=== PATIENT | female | born 1945 | race Caucasian/White ===

== ENCOUNTER 2024-05-30 04:43 | Observation (INO) | payer MEDICARE, SELFPAY ==
[2024-05-30] VITALS (19 sets, daily range): BP systolic 99–145; BP diastolic 77–113; PULSE 81–119; RESP 14–20; TEMP 36.6–36.9; O2SAT 90–97; BMI 35.4; BMI 37.5
--- NOTE | 2024-05-30 04:51 | ECG_ITS ---
[facility] Test Date: 2024-05-30 Pat Name: Loreto Almeida Department: Room: 107 Gender: Female Formula Maker: : 1945 Requested By: Gaurav Eric Order Number: [id number] Vannessa MD: Milton Vásquez M.D. Measurements Intervals [place] Rate: 101 P: 0 IN: 0 QRS: 132 QRSD: 91 T: 2 QT: 322 QTc: 419 Interpretive Statements ATRIAL FIBRILLATION WITH RAPID VENTRICULAR RESPONSE POSSIBLE RIGHT VENTRICULAR HYPERTROPHY [SOME/ALL OF: PROMINENT R IN V1, LATE TRANSITION, RAD, NINA, SSS] No previous ECG available for comparison Electronically Signed On 06-01-2024 7:54:22 CDT by Milton Vásquez M.D. [email or web address] TLL.[employer] Artsmerit health woman's hospitalOptiMine Softwaresouthern ohio medical center.[employer]/store/NU/[id number] f
--- NOTE | 2024-05-30 04:52 | XRR_ITS ---
PROCEDURE INFORMATION: Exam: XR Chest Exam date and time: 05/30/2024 4:57 AM Age: 78 years old Clinical indication: Chest pressure; Patient HX: C/O chest pain. History of afib. TECHNIQUE: Imaging protocol: Radiologic exam of the chest. Views: 1 view. COMPARISON: No relevant prior studies available. FINDINGS: Lungs: Unremarkable. No consolidation. Pleural spaces: Unremarkable. No pleural effusion. No pneumothorax. Heart/Mediastinum: Unremarkable. No cardiomegaly. Bones/joints: Unremarkable. XR/XR chest 1V portable [id number] IMPRESSION: No acute findings.
--- NOTE | 2024-05-30 04:53 | ECG_ITS ---
[facility] Test Date: 2024-05-30 Pat Name: Loreto Almeida Department: Room: Gender: Female Prototype Special Build: : 1945 Requested By: Gaurav Eric Order Number: [id number] Vannessa MD: Roosevelt Mckinney M.D. Measurements Intervals [place] Rate: 95 P: 0 MT: 0 QRS: -49 QRSD: 94 T: 13 QT: 349 QTc: 441 Interpretive Statements ATRIAL FIBRILLATION LEFT ANTERIOR FASCICULAR BLOCK [QRS AXIS <= -45, QR IN I, RS IN II] No previous ECG available for comparison Electronically Signed On 05-30-2024 7:59:08 CDT by Roosevelt Mckinney M.D. [email or web address] [email or web address]/store/[id number]
[2024-05-30 05:00] LABS: Basophils # 0.1 10^3/uL (0.0-0.1); Eosinophils # 0.2 10^3/uL (0.0-0.8); Eosinophils % 3.1 %; Hematocrit 40.6 % (36-47); Lymphocytes # 1.2 10^3/uL (0.8-4.8); Lymphocytes % 16.5 %; Mean Corpuscular HGB Conc 31.5 g/dL (30-55); Mean Corpuscular Volume 85.7 fl (85-98); Monocytes # 0.8 10^3/uL (0.2-0.9); Monocytes % 10.2 %; Neutrophils # 5.05 10^3/uL (1.8-7.7); Neutrophils % 68.9 %; Nucleated Red Blood Cells % 0 %; Platelet Count 253 10^3/cmm (157-399); Red Blood Count 4.74 10^6/uL (3.85-5.65); Red Cell Distribution Width 14.6 % (12.1-15.1); White Blood Count 7.33 10^3/uL (3.29-11.43)
[2024-05-30] MEDS: aspirin 81 mg Chew Tablet 324 MG PO (05:05)
[2024-05-30] MEDS: dilTIAZem 5 mg/mL SDV 5 mL 10 MG IVP (05:09)
--- NOTE | 2024-05-30 05:15 | ED_ITS ---
Documented by User: Gaurav Eric MD 05/30/24 06:02 HPI - Chest Pain 2 General: Chief Complaint: Chest Pain Stated Complaint: cp,afib,nausea Time Seen by Provider: 05/30/24 04:52 History of Present Illness: Patient woke with chest pain this morning. The pain woke her up from sleep so she would not to her neighbor's car and started honking the car horn for help. Patient does have a history of atrial fibrillation. She states that she is not compliant with her medications for this because it gives her upset stomach. She is in A-fib currently. PFSH ED 2 PFSH: Medical History (Updated 05/30/24 @ 11:22 by Mike Nix MD) History of back pain HTN, goal below 130/80 Chest pain Atrial fibrillation with rapid ventricular response Surgical History (Updated 05/30/24 @ 11:12 by Mike Nix MD) History of Social History (Updated 05/30/24 @ 11:13 by Mike Nix MD) Smoking and tobacco/nicotine status: never used tobacco/nicotine Alcohol intake: never Substance/Drug Use: never Physical Exam 2 Const: COMMON NORMALS: no acute distress HENMT: COMMON NORMALS: normocephalic and atraumatic HEAD & SCALP: n ormocephalic and atraumatic Resp: COMMON NORMALS: normal respiratory effort Cardio: RATE: tachycardic RHYTHM: abnormal rhythm irregularly irregular GI: COMMON NORMALS: Normal to inspection, nondistended, normoactive bowel sounds present Extremity: COMMON NORMALS: normal to inspection Course 2 Vital Signs: Vital signs: Vital Signs Temperature 97.8 F 05/30/24 12:00 Pulse Rate 94 05/30/24 12:00 Respiratory Rate 19 H 05/30/24 12:00 Blood Pressure 117/101 05/30/24 12:00 Pulse Oximetry 94 05/30/24 12:00 Oxygen Delivery Me thod Room Air 05/30/24 12:00 MDM - Chest Pain Medical Decision Making EKG with nonspecific ST and T wave changes. Rhythm is in atrial fibrillation with heart rate of 101 on EKG. In the room on the monitor the patient is going between 100-130. Patient started on Cardizem drip for A-fib with RVR. Will check cardiac enzymes. Patient given aspirin. Lab Data 05/30/24 04:53 05/30/24 04:53 Radiology Impressions Chest X-Ray 05/30/24 04:52 IMPRESSION: No acute findings. Head CT 05/30/24 10:12 IMPRESSION: No large territorial infarct or intracranial bleed. Laboratory Results WBC 7.33 10^3/uL (3.29-11.43) 05/30/24 04:53 RBC 4.74 10^6/uL (3.85-5.65) 05/30/24 04:53 Hgb 12.80 g/dL (11.27-16.99) 05/30/24 04:53 Hct 40.6 % (36-47) 05/30/24 04:53 MCV 85.7 fl (85-98) 05/30/24 04:53 MCH 27.0 pg (27-33) 05/30/24 04:53 MCHC 31.5 g/dL (30-55) 05/30/24 04:53 RDW 14.6 % (12.1-15.1) 05/30/24 04:53 Plt Count 253 10^3/cmm (157-399) 05/30/24 04:53 MPV 10.0 fL (7.4-10.4) 05/30/24 04:53 Neut % (Auto) 68.9 % 05/30/24 04:53 Lymph % (Auto) 16.5 % 05/30/24 04:53 Forest % (Auto) 10.2 % 05/30/24 04:53 Eos % (Auto) 3.1 % 05/30/24 04:53 Baso % (Auto) 1.0 % 05/30/24 04:53 Neut # (Auto) 5.05 10^3/uL (1.8-7.7) 05/30/24 04:53 Lymph # (Auto) 1.2 10^3/uL (0.8-4.8) 05/30/24 04:53 Forest # (Auto) 0.8 10^3/uL (0.2-0.9) 05/30/24 04:53 Eos # (Auto) 0.2 10^3/uL (0.0-0.8) 05/30/24 04:53 Baso # (Auto) 0.1 10^3/uL (0.0-0.1) 05/30/24 04:53 Nucleated RBC % (auto) 0 % 05/30/24 04:53 Nucleated RBCs # 0.0 /100WBC 05/30/24 04:53 Sodium 137 mmol/L (136-145) 05/30/24 04:53 Potassium 4.4 mmol/L (3.5-5.1) 05/30/24 04:53 Chloride 103 mmol/L (98-107) 05/30/24 04:53 Carbon Dioxide 19 mmol/L (22-29) L 05/30/24 04:53 Anion Gap 19.4 (5-19) H 05/30/24 04:53 BUN 52 mg/dL (8-23) H 05/30/24 04:53 Creatinine 1.2 mg/dL (0.5-0.9) H 05/30/24 04:53 GFR Calculation Not Reportable 05/30/24 04:53 Glucose 119 mg/dL (65-115) H 05/30/24 04:53 Estimat Average Glucose 126 05/30/24 04:53 Hemoglobin A1c 6.0 % (4.0-6.0) 05/30/24 04:53 Calculated Osmolality 299 mOsm/kg (285-295) H 05/30/24 04:53 Calcium 9.4 mg/dL (8.5-10.5) 05/30/24 04:53 Magnesium 2.1 mg/dL (1.7-2.3) 05/30/24 07:11 Total Bilirubin 0.4 mg/dL (0.15-1.2) 05/30/24 04:53 AST 23 U/L (0-32) 05/30/24 04:53 ALT 21 U/L (0-33) 05/30/24 04:53 Alkaline Phosphatase 106 U/L (35-105) H 05/30/24 04:53 Troponin T Baseline 35 ng/L (0-10) H 05/30/24 04:53 Troponin T 120 Minute 33.58 ng/L (0-10) H 05/30/24 07:11 Delta Troponin T -1.42 ABS# (0-10) L 05/30/24 07:11 C-Reactive Protein 6.1 mg/L (0.0-4.9) H 05/30/24 07:11 NT-Pro-B Natriuret Pep 1823 pg/mL (0-450) H 05/30/24 07:11 Total Protein 7.0 g/dL (6.6-8.7) 05/30/24 04:53 Albumin 0.2 g/dL (3.5-5.2) L 05/30/24 04:53 Globulin 6.8 g/dL (1.3-4.6) H 05/30/24 04:53 Triglycerides 126 mg/dL (0-150) 05/30/24 04:53 Cholesterol 194 mg/dL (0-200) 05/30/24 04:53 LDL Cholesterol, Calc 107 mg/dL (50-129) 05/30/24 04:53 HDL Cholesterol 62 mg/dL (60-100) 05/30/24 04:53 LDL/HDL Ratio 1.73 RATIO (0.00-3.22) 05/30/24 04:53 Cholesterol/HDL Ratio 3.13 mg/dL (0.0-4.40) 05/30/24 04:53 Procalcitonin 0.16 ng/mL (0-0.5) 05/30/24 07:11 TSH 1.16 uIU/mL (0.27-4.20) 05/30/24 04:53 Urine Color Yellow (Yellow) 05/30/24 05:53 Urine Appearance Cloudy (CLEAR) A 05/30/24 05:53 Urine pH 5.5 (5-7) 05/30/24 05:53 Ur Specific Gal[place] 1.023 (1.005-1.030) 05/30/24 05:53 Urine Protein 1+ (Negative) A 05/30/24 05:53 Urine Glucose (UA) Negative (Normal) 05/30/24 05:53 Urine Ketones Negative (Negative) 05/30/24 05:53 Urine Blood Trace (Negative) A 05/30/24 05:53 Urine Nitrate Positive (Negative) A 05/30/24 05:53 Urine Bilirubin Negative (Negative) 05/30/24 05:53 Urine Urobilinogen 1.0 mg/dL (Negative) 05/30/24 05:53 Ur Leukocyte Esterase 2+ (Negative) A 05/30/24 05:53 Urine RBC 0-2 /hpf (0-2) 05/30/24 05:53 Urine WBC >100 /hpf (0-5) H 05/30/24 05:53 Ur Squamous Epith Cells 0-5 /hpf (0-5) 05/30/24 05:53 Urine Bacteria Exceeds /hpf (NONE) 05/30/24 05:53 Hyaline Casts 6.61 /lpf 05/30/24 05:53 Ethyl Alcohol < 10 mg/dL (0-10) 05/30/24 04:53 All radiology interpretation(s) finalized by discharge Discharge Plan Discharge Patient Disposition: Admitted As Inpatient Admit Provider: Mike Nix Clinical Impression: Atrial fibrillation with rapid ventricular response, Chest pain Condition: Stable Sign Out Sign Out Data: Patient Sign Out occurred on 05/30/24 at 06:10. Patient's care was discussed, and care was transferred from Gaurav Eric MD to Romulo Roberto DO. Coding Level of Care Code ED Horse Racing Manager for Chg Fwd Documented by User: Romulo Roberto DO 05/30/24 13:14 HPI - Chest Pain 2 General: Chief Complaint: Chest Pain Stated Complaint: cp,afib,nausea Time Seen by Provider: 05/30/24 04:52 [facility] ED 2 PFSH: Medical History (Updated 05/30/24 @ 11:22 by Mike Nix MD) History of back pain HTN, goal below 130/80 Chest pain Atrial fibrillation with rapid ventricular response Surgical History (Updated 05/30/24 @ 11:12 by Mike Nix MD) History of Social History (Updated 05/30/24 @ 11:13 by Mike Nix MD) Smoking and tobacco/nicotine status: never used tobacco/nicotine Alcohol intake: never Substance/Drug Use: never Course 2 Vital Signs: Vital signs: Vital Signs Temperature 97.8 F 05/30/24 12:00 Pulse Rate 94 05/30/24 12:00 Respiratory Rate 19 H 05/30/24 12:00 Blood Pressure 117/101 05/30/24 12:00 Pulse Oximetry 94 05/30/24 12:00 Oxygen Delivery Me thod Room Air 05/30/24 12:00 MDM - Chest Pain Medical Decision Making EKG with nonspecific ST and T wave changes. Rhythm is in atrial fibrillation with heart rate of 101 on EKG. In the room on the monitor the patient is going between 100-130. Patient started on Cardizem drip for A-fib with RVR. Will check cardiac enzymes. Patient given aspirin. Care assumed at change of shift still continuing to require diltiazem intermittently of chest pain cardiac enzymes trending negative at this point. EKG shows A-fib with rapid response but no acute ST changes. Will admit for A- fib with RVR further evaluation of chest pain. Chart reviewed no previous echocardiograms stress test angiograms noted. Lab Data 05/30/24 04:53 05/30/24 04:53 Radiology Impressions Chest X-Ray 05/30/24 04:52 IMPRESSION: No acute findings. Head CT 05/30/24 10:12 IMPRESSION: No large territorial infarct or intracranial bleed. Laboratory Results WBC 7.33 10^3/uL (3.29-11.43) 05/30/24 04:53 RBC 4.74 10^6/uL (3.85-5.65) 05/30/24 04:53 Hgb 12.80 g/dL (11.27-16.99) 05/30/24 04:53 Hct 40.6 % (36-47) 05/30/24 04:53 MCV 85.7 fl (85-98) 05/30/24 04:53 MCH 27.0 pg (27-33) 05/30/24 04:53 MCHC 31.5 g/dL (30-55) 05/30/24 04:53 RDW 14.6 % (12.1-15.1) 05/30/24 04:53 Plt Count 253 10^3/cmm (157-399) 05/30/24 04:53 MPV 10.0 fL (7.4-10.4) 05/30/24 04:53 Neut % (Auto) 68.9 % 05/30/24 04:53 Lymph % (Auto) 16.5 % 05/30/24 04:53 Forest % (Auto) 10.2 % 05/30/24 04:53 Eos % (Auto) 3.1 % 05/30/24 04:53 Baso % (Auto) 1.0 % 05/30/24 04:53 Neut # (Auto) 5.05 10^3/uL (1.8-7.7) 05/30/24 04:53 Lymph # (Auto) 1.2 10^3/uL (0.8-4.8) 05/30/24 04:53 [place] # (Auto) 0.8 10^3/uL (0.2-0.9) 05/30/24 04:53 Eos # (Auto) 0.2 10^3/uL (0.0-0.8) 05/30/24 04:53 Baso # (Auto) 0.1 10^3/uL (0.0-0.1) 05/30/24 04:53 Nucleated RBC % (auto) 0 % 05/30/24 04:53 Nucleated RBCs # 0.0 /100WBC 05/30/24 04:53 Sodium 137 mmol/L (136-145) 05/30/24 04:53 Potassium 4.4 mmol/L (3.5-5.1) 05/30/24 04:53 Chloride 103 mmol/L (98-107) 05/30/24 04:53 Carbon Dioxide 19 mmol/L (22-29) L 05/30/24 04:53 Anion Gap 19.4 (5-19) H 05/30/24 04:53 BUN 52 mg/dL (8-23) H 05/30/24 04:53 Creatinine 1.2 mg/dL (0.5-0.9) H 05/30/24 04:53 GFR Calculation Not Reportable 05/30/24 04:53 Glucose 119 mg/dL (65-115) H 05/30/24 04:53 Estimat Average Glucose 126 05/30/24 04:53 Hemoglobin A1c 6.0 % (4.0-6.0) 05/30/24 04:53 Calculated Osmolality 299 mOsm/kg (285-295) H 05/30/24 04:53 Calcium 9.4 mg/dL (8.5-10.5) 05/30/24 04:53 Magnesium 2.1 mg/dL (1.7-2.3) 05/30/24 07:11 Total Bilirubin 0.4 mg/dL (0.15-1.2) 05/30/24 04:53 AST 23 U/L (0-32) 05/30/24 04:53 ALT 21 U/L (0-33) 05/30/24 04:53 Alkaline Phosphatase 106 U/L (35-105) H 05/30/24 04:53 Troponin T Baseline 35 ng/L (0-10) H 05/30/24 04:53 Troponin T 120 Minute 33.58 ng/L (0-10) H 05/30/24 07:11 Delta Troponin T -1.42 ABS# (0-10) L 05/30/24 07:11 C-Reactive Protein 6.1 mg/L (0.0-4.9) H 05/30/24 07:11 NT-Pro-B Natriuret Pep 1823 pg/mL (0-450) H 05/30/24 07:11 Total Protein 7.0 g/dL (6.6-8.7) 05/30/24 04:53 Albumin 0.2 g/dL (3.5-5.2) L 05/30/24 04:53 Globulin 6.8 g/dL (1.3-4.6) H 05/30/24 04:53 Triglycerides 126 mg/dL (0-150) 05/30/24 04:53 Cholesterol 194 mg/dL (0-200) 05/30/24 04:53 LDL Cholesterol, Calc 107 mg/dL (50-129) 05/30/24 04:53 HDL Cholesterol 62 mg/dL (60-100) 05/30/24 04:53 LDL/HDL Ratio 1.73 RATIO (0.00-3.22) 05/30/24 04:53 Cholesterol/HDL Ratio 3.13 mg/dL (0.0-4.40) 05/30/24 04:53 Procalcitonin 0.16 ng/mL (0-0.5) 05/30/24 07:11 TSH 1.16 uIU/mL (0.27-4.20) 05/30/24 04:53 Urine Color Yellow (Yellow) 05/30/24 05:53 Urine Appearance Cloudy (CLEAR) A 05/30/24 05:53 Urine pH 5.5 (5-7) 05/30/24 05:53 Ur Specific [place] 1.023 (1.005-1.030) 05/30/24 05:53 Urine Protein 1+ (Negative) A 05/30/24 05:53 Urine Glucose (UA) Negative (Normal) 05/30/24 05:53 Urine Ketones Negative (Negative) 05/30/24 05:53 Urine Blood Trace (Negative) A 05/30/24 05:53 Urine Nitrate Positive (Negative) A 05/30/24 05:53 Urine Bilirubin Negative (Negative) 05/30/24 05:53 Urine Urobilinogen 1.0 mg/dL (Negative) 05/30/24 05:53 Ur Leukocyte Esterase 2+ (Negative) A 05/30/24 05:53 Urine RBC 0-2 /hpf (0-2) 05/30/24 05:53 Urine WBC >100 /hpf (0-5) H 05/30/24 05:53 Ur Squamous Epith Cells 0-5 /hpf (0-5) 05/30/24 05:53 Urine Bacteria Exceeds /hpf (NONE) 05/30/24 05:53 Hyaline Casts 6.61 /lpf 05/30/24 05:53 Ethyl Alcohol < 10 mg/dL (0-10) 05/30/24 04:53 Discharge Plan Discharge Patient Disposition: Admitted As Inpatient Admit Provider: Mike Nix Clinical Impression: Atrial fibrillation with rapid ventricular response, Chest pain Condition: Stable Sign Out Sign Out Data: Patient Sign Out occurred on 05/30/24 at 06:10. Patient's care was discussed, and care was transferred from Gaurav Eric MD to Romulo Roberto DO. Coding Level of Care Code ED Horse Racing Manager for Peg Marin
[2024-05-30 05:22] LABS: Troponin(5th) Baseline 35 ng/L (0-10)
[2024-05-30 05:23] LABS: Alanine Aminotransferase 21 U/L (0-33); Albumin Level 0.2 g/dL (3.5-5.2); Aspartate Amino Transferase 23 U/L (0-32); Blood Urea Nitrogen 52 mg/dL (8-23); Calcium 9.4 mg/dL (8.5-10.5); Carbon Dioxide 19 mmol/L (22-29); Creatinine Clr Calc Pharmacy 41.0889; Globulin 6.8 g/dL (1.3-4.6); Glucose 119 mg/dL (65-115); Total Bilirubin 0.4 mg/dL (0.15-1.2)
[2024-05-30 05:49] LABS: Alkaline Phosphatase 106 U/L (35-105); Anion Gap 19.4 (5-19); Chloride 103 mmol/L (98-107); Osmolality Calculated 299 mOsm/kg (285-295); Potassium 4.4 mmol/L (3.5-5.1); Sodium 137 mmol/L (136-145)
[2024-05-30] MEDS: dilTIAZem 100 MG in sodium chloride 0.9% (add-van) 100 ML IV ×2 (05:50→11:39)
[2024-05-30] MEDS: HYDROcodone-acetaminophen 5-325 mg Tablet 1 TAB PO (05:59)
[2024-05-30 06:21] LABS: Bilirubin Urine Negative (Negative); Blood Urine Trace (Negative); Charge for UA Resulting for Rev; Glucose Urine UA Negative (Normal); Ketones Urine Negative (Negative); Leukocyte Esterase Urine 2+ (Negative); Nitrate Urine Positive (Negative); Protein Urine 1+ (Negative); Specific Gravity, Urine 1.023 (1.005-1.030); Urine Appearance Cloudy (CLEAR); Urine Color Yellow (Yellow); pH Urine 5.5 (5-7)
[2024-05-30 06:26] LABS: Bacteria Urine EXCEEDS /hpf; Hyaline Casts Urine 6.61 /lpf; RBC Urine 0-2 /hpf (0-2); Squamous Epithelial Cell Urine 0-5 /hpf (0-5); WBC Urine >100 /hpf (0-5)
[2024-05-30 06:34] LABS: Add Urine Culture? Yes
--- NOTE | 2024-05-30 07:00 | PC.NURSE ---
this nurse assumed pt care at 0655.
[2024-05-30 07:39] LABS: Troponin 5 2HR 33.58 ng/L (0-10)
[2024-05-30 07:43] LABS: Troponin 5 2HR Delta -1.42 ABS# (0-10)
[2024-05-30] MEDS: cefTRIAXone 1,000 mg SDV 1000 MG IVP (08:48)
--- NOTE | 2024-05-30 09:34 | USR_ITS ---
PROCEDURE INFORMATION: Exam: US Retroperitoneal; Complete; Kidneys and Bladder Exam date and time: 05/30/2024 4:19 PM Age: 78 years old Clinical indication: Condition or disease; Kidney or ureter condition; Other: UTI TECHNIQUE: Imaging protocol: Real-time ultrasound of the retroperitoneum with image documentation. Complete exam focused on the kidneys and bladder. COMPARISON: No relevant prior studies available. FINDINGS: Right kidney: Normal. No stones. No hydronephrosis. Right kidney measures 9 x 4.4 x 4.3 cm with cortical thickness of 1.3 cm. Left kidney: Limited assessment due to overlying shadows. Possible tiny left renal stone in the interpolar region. No hydronephrosis. Left kidney measures 9 x 4.8 x 4.7 cm with cortical thickness of 1.2 cm. Urinary bladder: Unremarkable. US/US renal BI* [id number] IMPRESSION: No hydronephrosis on either side.
--- NOTE | 2024-05-30 09:37 | USCV_ITS ---
Loreto Almeida Age: 78 Gender: F : 1945 Exam Date: 05/30/2024 15:54 Ordering Phys: Mike Nix MD Technologist: Brody Jolly [place] [facility] [place] Indication: sob BP: 117 / 101 HR: 60 Rhythm: Sinus Technical Quality: Suboptimal MEASUREMENTS (Male / Female) Normal Values 2D ECHO LV Diastolic Diameter PLAX 4.5 cm 4.2 - 5.9 / 3.9 - 5.3 cm IVS Diastolic Thickness 1.3 cm 0.6 - 1.0 / 0.6 - 0.9 cm IVS Systolic Thickness 2.4 cm LVPW Diastolic Thickness 2.2 cm 0.6 - 1.0 / 0.6 - 0.9 cm LVPW Systolic Thickness 2.9 cm LVOT Diameter 2.0 cm LV Ejection Fraction 2D Teich 78.0 % LV Ejection Fraction MOD 4C 71.9 % LV Ejection Fraction MOD 2C 72.2 % LV Ejection Fraction 2C AL 75.0 % LA Diameter 4.5 cm Aorta at Sinotubular Diameter 2.0 cm IVC Diameter 2.5 cm M-MODE LA Ao Ratio MM 1.8 AV Cusp Separation MM 1.5 cm DOPPLER AV Peak Velocity 180.0 cm/s LVOT Peak Velocity 83.0 cm/s AV Area Cont Eq vti 1.3 cm squared AV Area Cont Eq pk 1.4 cm squared MV Peak Velocity 174.0 cm/s MV Area PHT 3.8 cm squared Mitral E to A Ratio 5.3 TR Peak Velocity 265.0 cm/s TR Peak Gradient 28.1 mmHg TR Mean Velocity 176.0 cm/s TR Mean Gradient 15.3 mmHg TR Velocity Time Integral 80.5 cm PV Peak Velocity 67.3 cm/s RV Ejection Time 0.3 s FINDINGS Left Ventricle Frequent ectopy. Normal left ventricular size and function. No regional wall motion disturbances. Ejection fraction about 60%. Rhythm precludes evaluation of diastolic function. Right Ventricle Normal right ventricular size and systolic function. Right Atrium The right atrium is normal in size. Left Atrium Moderately increased left atrial size. Mitral Valve Mitral valve poorly seen. No obvious regurgitation or stenosis. Aortic Valve Aortic valve is thickened and may be mildly calcified. No aortic insufficiency.mild aortic valve stenosis, mean gradient 8.8 mmHg, EMANUEL 1.3 cm squared. Tricuspid Valve Structurally normal tricuspid valve. Pulmonic Valve Pulmonic valve not well visualized. Mild pulmonary valve regurgitation. Pericardium There is a very small hemodynamically insignificant pericardial effusion Aorta Normal ascending aorta dimension. IVC The inferior vena cava appears normal. CONCLUSIONS Frequent ectopy. Normal left ventricular size and function. No regional wall motion disturbances. Ejection fraction about 60%. Rhythm precludes evaluation of diastolic function. Moderately increased left atrial size. Aortic valve is thickened and may be mildly calcified. No aortic insufficiency.mild aortic valve stenosis, mean gradient 8.8 mmHg, EMANUEL 1.3 cm squared. There is a very small hemodynamically insignificant pericardial effusion. There are no prior echocardiogram studies to compare. Dr. Roosevelt Mckinney MD (Electronically Signed) Final Date: 31 May 2024 08:31 S
[2024-05-30 10:06] LABS: NT Pro B Type Natriuretic Pept 1823 pg/mL (0-450); Procalcitonin 0.16 ng/mL (0-0.5)
--- NOTE | 2024-05-30 10:12 | CTR_ITS ---
PROCEDURE INFORMATION: Exam: CT Head Without Contrast Exam date and time: 05/30/2024 10:31 AM Age: 78 years old Clinical indication: Altered mental status/memory loss; Additional info: AMS TECHNIQUE: Imaging protocol: Computed tomography of the head without contrast. Radiation optimization: All CT scans at this facility use at least one of these dose optimization techniques: automated exposure control; mA and/or kV adjustment per patient size (includes targeted exams where dose is matched to clinical indication); or iterative reconstruction. COMPARISON: No relevant prior studies available. RADIATION DOSE METRICS: Total DLP (mGy-cm): 1101.9 FINDINGS: Brain: Bilateral periventricular white matter hypodensities consistent with chronic ischemic small vessel disease. Diffuse cerebral atrophy, consistent with patient's age. No intracranial bleed, mass effect or recent infarct. Cerebral ventricles: Ventricles are in proportion to the degree of atrophy. Paranasal sinuses: Visualized sinuses are unremarkable. No fluid levels. Mastoid air cells: Visualized mastoid air cells are well aerated. Bones: Unremarkable. No acute fracture. Soft tissues: Unremarkable. CT/CT head wo con* [id number] IMPRESSION: No large territorial infarct or intracranial bleed.
[2024-05-30 10:17] LABS: C Reactive Protein 6.1 mg/L (0.0-4.9); Magnesium 2.1 mg/dL (1.7-2.3)
[2024-05-30 10:33] LABS: INR 1.07 (0.8-1.2)
--- NOTE | 2024-05-30 11:11 | PM.HP ---
Providers/Chief Complaint Admitting Physician: Mike Nix MD Primary Care Provider: Jalil Gibbons DO Chief Complaint: cp,afib,nausea History of Present Illness Loreto Almeida is a 78 year old female with a past medical history of CAD status post stenting, history of atrial fibrillation, hypertension, history of [place] spotted fever, who presents to [facility] due to chest pain and palpitations. Patient was in the last night, [place], she started experiencing chest palpitations and chest pain, she wandered outside her trailer, trying to call family members, but was not able to reach some, she tried to get into her car, and call out for help, she was worried about something happening in her trailer and no one can get to her, so she was trying to call for help in her car, but no one was answering the phones, so she started flashing her lights, yelling for help, finally the police came, and able to calm her down, she was continued to complain of chest discomfort, with the police investigator confronted her that this was not her car it was a truck, that she was and is actually a neighbor's truck, eventually ambulance arrived, and she was brought to [facility] for evaluation, currently she is alert oriented x 4, following all commands, denies any focal weakness no slurring of words no, paresthesias, no nausea, no vomiting, no abdominal pain, she does complain of flank pain, she has a history of atrial for patient, but has not been using Eliquis Review of Systems Const: Denies: fever(s) Card: Reports: chest pain Resp: Denies: dyspnea : Denies: flank pain PFSH Acute PFSH: Medical History (Updated 05/30/24 @ 11:22 by Mike Nix MD) History of back pain HTN, goal below 130/80 Chest pain Atrial fibrillation with rapid ventricular response Surgical History (Updated 05/30/24 @ 11:12 by Mike Nix MD) History of Social History (Updated 05/30/24 @ 11:13 by Mike Nix MD) Smoking and tobacco/nicotine status: never used tobacco/nicotine Alcohol intake: never Substance/Drug Use: never Vitals/I&O/Wt Last Vital Signs Temp 98 F 05/30/24 10:48 Pulse 105 H 05/30/24 10:48 Resp 16 05/30/24 10:48 BP 145/113 05/30/24 10:48 Pulse Ox 95 05/30/24 10:48 O2 Del Method Room Air 05/30/24 10:16 Weight last 48 hrs Weight 87.997 kg Physical Exam Const: COMMON NORMALS: no acute distress and patient oriented x3 HENMT: COMMON NORMALS: normocephalic HEAD & SCALP: normocephalic Eye: COMMON NORMALS: Equal, round and reactive pupils present Neck/C-Spine: COMMON NORMALS: no JVD Lymph: LYMPHATIC: no lymphadenopathy noted Resp: COMMON NORMALS: normal respiratory effort, No retractions, No use of accessory muscles and clear to auscultation bilaterally AUSCULTATION: clear to auscultation bilaterally Cardio: COMMON NORMALS: no JVD, S1 normal heart sound present and S2 normal heart sound present RATE: tachycardic RHYTHM: abnormal rhythm irregularly irregular HEART SOUNDS: S1 normal heart sound present and S2 normal heart sound present GI: COMMON NORMALS: Normal to inspection, nondistended, normoactive bowel sounds present, Soft to palpation and non-tender Extremity: COMMON NORMALS: no calf tenderness and no pedal edema Neuro: COMMON NORMALS: patient oriented x3 and CN's II-XII intact bilaterally Psych: COMMON NORMALS: mental status grossly normal Data 05/30/24 04:53 05/30/24 04:53 Micro: Microbiology 05/30/24 07:56 Blood Culture - Preliminary Blood SPECIMEN COLLECTED 05/30/24 07:56 Blood Culture - Preliminary Blood SPECIMEN COLLECTED A&P Assessment and plan (1) Atrial fibrillation with rapid ventricular response: (2) Chest pain: (3) UTI (urinary tract infection): (4) AMS (altered mental status): (5) EMILIANO (acute kidney injury): Plan A-fib with RVR Is currently on Cardizem drip Add Cardizem p.o. 30 mg every 6 hours Eliquis 5 twice daily Chest pain ? Serial EKGs consult troponins, telemetry monitoring -Cardiac echo UTI, pyelonephritis ? Rocephin -Follow urine culture -Follow blood cultures EMILIANO Creatinine renal ultrasound Altered mental status, likely related to UTI ? Neurochecks Aspiration precautions CT head Chronic back pain Eliquis Full code Attestations Medical Necessity Statement*: Patient requires hospitalization, outpatient observation, for A-fib with RVR Diagnoses Atrial fibrillation with rapid ventricular response I48.91 Chest pain R07.9 UTI (urinary tract infection) N39.0 AMS (altered mental status) R41.82 EMILIANO (acute kidney injury) N17.9
[2024-05-30] MEDS: dilTIAZem 30 mg Tablet PO ×3 (11:39→22:16)
[2024-05-30] MEDS: pantoprazole 40 mg SDV IVP (11:39)
[2024-05-30 12:08] LABS: Amphetamines Screen Urine Negative (Negative); Barbiturates Screen Urine Negative (Negative); Benzodiazepines Screen Urine Negative (Negative); Cocaine Screen Urine Negative (Negative); Opiate Screen Urine Positive (Negative); PCP Screen Urine Negative (Negative); THC Screen Urine Negative (Negative)
[2024-05-30 12:44] LABS: Estmated Average Glucose 126
[2024-05-30 12:46] LABS: Chol HDL Ratio 3.13 mg/dL (0.0-4.40); Cholesterol 194 mg/dL (0-200); HDL Cholesterol 62 mg/dL (60-100); LDL Cholesterol Calculated 107 mg/dL (50-129); LDL HDL Ratio 1.73 RATIO (0.00-3.22); Thyroid Stimulating Hormone 1.16 uIU/mL (0.27-4.20); Triglycerides 126 mg/dL (0-150)
[2024-05-30 12:47] LABS: Alcohol Level < 10 mg/dL (0-10)
[2024-05-30] MEDS: morphine 4 mg/mL SDV 1 mL 2 MG IVP (13:03)
[2024-05-30 13:09] LABS: Troponin 5 6HR 31.84 ng/L (0-10)
[2024-05-30 13:15] LABS: Troponin 5 6HR Delta -3.16 ng/L (0-12)
[2024-05-30] MEDS: apixaban 5 mg Tablet PO (18:15)
[2024-05-31] VITALS (11 sets, daily range): BP systolic 92–136; BP diastolic 56–101; PULSE 70–104; RESP 15–24; TEMP 36.3–37; O2SAT 93–96
[2024-05-31 03:19] LABS: Basophils % 0.5 %; Eosinophils # 0.3 10^3/uL (0.0-0.8); Eosinophils % 4.6 %; Hematocrit 38.8 % (36-47); Lymphocytes # 1.3 10^3/uL (0.8-4.8); Lymphocytes % 21.9 %; Mean Corpuscular HGB Conc 30.9 g/dL (30-55); Mean Corpuscular Hemoglobin 26.8 pg (27-33); Mean Corpuscular Volume 86.8 fl (85-98); Mean Platelet Volume 10.9 fL (7.4-10.4); Monocytes # 0.6 10^3/uL (0.2-0.9); Monocytes % 10.7 %; Neutrophils # 3.66 10^3/uL (1.8-7.7); Nucleated Red Blood Cells % 0 %; Platelet Count 244 10^3/cmm (157-399); Red Blood Count 4.47 10^6/uL (3.85-5.65); Red Cell Distribution Width 14.7 % (12.1-15.1)
[2024-05-31 03:35] LABS: Alanine Aminotransferase 16 U/L (0-33); Albumin Level 3.6 g/dL (3.5-5.2); Alkaline Phosphatase 80 U/L (35-105); Anion Gap 13.5 (5-19); Aspartate Amino Transferase 19 U/L (0-32); Blood Urea Nitrogen 30 mg/dL (8-23); Calcium 8.8 mg/dL (8.5-10.5); Carbon Dioxide 21 mmol/L (22-29); Chloride 108 mmol/L (98-107); Globulin 2.6 g/dL (1.3-4.6); Glucose 103 mg/dL (65-115); Osmolality Calculated 292 mOsm/kg (285-295); Phosphorus 2.4 mg/dL (2.5-4.5); Potassium 4.5 mmol/L (3.5-5.1); Sodium 138 mmol/L (136-145); Total Bilirubin 0.4 mg/dL (0.15-1.2); Total Protein 6.2 g/dL (6.6-8.7)
--- NOTE | 2024-05-31 03:35 | PC.NURSE ---
Spoke with regarding patients complaints of chronic back pain, 06/05 requesting her home pain medication oxycodone-acetaminophen . The patient only has prn morphine for pain and states she can not take it because it made her feel funny and gave her a sever headache. Dr. Millan said ok to order her home dose 1 tab q6H prn.
[2024-05-31 03:48] LABS: Bacillus cereus group Not Detected (NOT DETECT); Bacillus subtillis group Not Detected (NOT DETECT); Corynebacterium Not Detected (NOT DETECT); Cutibacterium acnes (P.acnes) Not Detected (NOT DETECT); Enterococcus Not Detected (NOT DETECT); Enterococcus faecalis Not Detected (NOT DETECT); Enterococcus faecium Not Detected (NOT DETECT); Lactobacillus species Not Detected (NOT DETECT); Listeria Not Detected (NOT DETECT); Listeria monocytogenes Not Detected (NOT DETECT); Micrococcus Not Detected (NOT DETECT); Pan Candida Not Detected (NOT DETECT); Pan Gram-Negative Not Detected (NOT DETECT); Staphylococcus epidermidis Not Detected (NOT DETECT); Staphylococcus lugdunensis Not Detected (NOT DETECT); Staphylococcus species Detected (NOT DETECT); Streptococcus agalactiae Not Detected (NOT DETECT); Streptococcus anginosus group Not Detected (NOT DETECT); Streptococcus pneumoniae Not Detected (NOT DETECT); Streptococcus pyogenes Not Detected (NOT DETECT); Streptococcus species Not Detected (NOT DETECT); mecA Not Detected (NOT DETECT); mecC Not Detected (NOT DETECT)
[2024-05-31] MEDS: oxyCODONE-APAP 10-325 mg Tablet 1 TAB PO ×3 (04:19→19:25)
[2024-05-31] MEDS: dilTIAZem 30 mg Tablet PO (04:19)
--- NOTE | 2024-05-31 04:21 | PC.NURSE ---
Made aware of patient with positive preliminary blood cultures showing gram positive cocci in clusters and lab reports that bacterial ID positive for staphylococcus. said he would put in orders for vancomycin.
[2024-05-31] MEDS: vancomycin 1,500 MG/300 ML PIGGYBACK 200 MG IV ×2 (05:31→17:34)
[2024-05-31] MEDS: cefTRIAXone 1,000 mg SDV 1000 MG IVP (05:31)
[2024-05-31] MEDS: apixaban 5 mg Tablet PO ×2 (05:38→17:34)
--- NOTE | 2024-05-31 09:14 | PC.NURSE ---
Provider ordered to increase patients cardizem PO from 30mg to 60mg Q6 hrs to start now. Order entered.
[2024-05-31] MEDS: dilTIAZem 60 mg Tablet PO ×3 (09:24→21:17)
[2024-05-31] MEDS: pantoprazole 40 mg SDV IVP (11:46)
--- NOTE | 2024-05-31 15:30 | P.PN_ITS ---
Subjective 2 Subjective: patient was seen this morning, she denies fever, no chills, no nausea, no vommiting Vitals/I&O/Wt Last Vital Signs Temp 98.2 F 05/31/24 12:00 Pulse 70 05/31/24 12:00 Resp 20 H 05/31/24 12:00 BP 136/101 05/31/24 12:00 Pulse Ox 94 05/31/24 12:00 O2 Del Method Room Air 05/31/24 04:00 05/31/24 05/31/24 05/31/24 06:59 14:59 22:59 Intake Total 150 / 889.875 760 / 760 Output Total 100 / 100 Balance 150 / 89.875 660 / 660 Weight last 48 hrs Weight 86.183 kg Weight 87.09 kg Weight 87.997 kg Physical Exam 2 Const: COMMON NORMALS: no acute distress and patient oriented x3 Resp: COMMON NORMALS: normal respiratory effort, No retractions, No use of accessory muscles and clear to auscultation bilaterally AUSCULTATION: clear to auscultation bilaterally Cardio: COMMON NORMALS: S1 normal heart sound present and S2 normal heart sound present RATE: tachycardic RHYTHM: abnormal rhythm HEART SOUNDS: S 1 normal heart sound present and S2 normal heart sound present GI: COMMON NORMALS: Normal to inspection, nondistended, normoactive bowel sounds present and non-tender Extremity: COMMON NORMALS: no pedal edema Neuro: COMMON NORMALS: patient oriented x3 Psych: COMMON NORMALS: mental status grossly normal Data 05/31/24 02:15 05/31/24 02:15 Micro: Microbiology 05/30/24 07:56 Blood Culture - Preliminary Blood Staphylococcus sp coag neg 05/30/24 05:53 Urine Culture - Preliminary Urine,Clean Catch Gram Negative Rods 05/30/24 07:56 Blood Culture - Preliminary Blood NEGATIVE TO DATE 05/31/24 07:01 Blood Culture - Preliminary Blood SPECIMEN COLLECTED 05/31/24 06:55 Blood Culture - Preliminary Blood SPECIMEN COLLECTED A&P Assessment and plan (1) Atrial fibrillation with rapid ventricular response: (2) Chest pain: (3) UTI (urinary tract infection): (4) AMS (altered mental status): (5) EMILIANO (acute kidney injury): (6) Coag negative Staphylococcus bacteremia: Plan A-fib with RVR transition off drip Add Cardizem p.o. 60 mg every 6 hours Eliquis 5 twice daily Chest pain ? Serial EKGs consult troponins, telemetry monitoring -Cardiac echo UTI, pyelonephritis ? Rocephin -Follow urine culture -Follow blood cultures EMILIANO Creatinine renal ultrasound Altered mental status, likely related to UTI ? Neurochecks Aspiration precautions CT head Chronic back pain staph bacteremia, likely contamination -repeat blood cultures pending Eliquis Full code Attestations 2 Medical Necessity Statement*: patient requires hospitalization for uti, pyelonephritis, staph bacteremia. emiliano Diagnoses Atrial fibrillation with rapid ventricular response I48.91 Chest pain R07.9 UTI (urinary tract infection) N39.0 AMS (altered mental status) R41.82 EMILIANO (acute kidney injury) N17.9 Coag negative Staphylococcus bacteremia R78.81; B95.7
--- NOTE | 2024-05-31 19:14 | PC.NURSE ---
Patient ambulated the hallway after lunch for a total of about 50 feet. Her vitals remained stable. Her heart rate went up to 124 while walking after sitting back down her heart rate recovered to 88-103 within 3-5 minutes. She has also been getting up to the bedside commode on and off all day.
[2024-06-01] VITALS (12 sets, daily range): BP systolic 115–160; BP diastolic 63–100; PULSE 56–101; RESP 18–92; TEMP 36.5–36.8; O2SAT 91–96
[2024-06-01] MEDS: oxyCODONE-APAP 10-325 mg Tablet 1 TAB PO ×4 (00:49→21:04)
[2024-06-01] MEDS: dilTIAZem 60 mg Tablet PO ×4 (04:00→21:04)
[2024-06-01] MEDS: vancomycin 1,500 MG/300 ML PIGGYBACK 200 MG IV ×2 (04:00→17:26)
[2024-06-01 05:00] LABS: Basophils # 0.1 10^3/uL (0.0-0.1); Basophils % 0.8 %; Eosinophils # 0.3 10^3/uL (0.0-0.8); Eosinophils % 5.1 %; Hematocrit 41.5 % (36-47); Lymphocytes # 1.3 10^3/uL (0.8-4.8); Lymphocytes % 21.9 %; Mean Corpuscular HGB Conc 30.4 g/dL (30-55); Mean Corpuscular Hemoglobin 26.8 pg (27-33); Mean Corpuscular Volume 88.1 fl (85-98); Mean Platelet Volume 10.5 fL (7.4-10.4); Monocytes # 0.7 10^3/uL (0.2-0.9); Monocytes % 12.3 %; Neutrophils # 3.61 10^3/uL (1.8-7.7); Neutrophils % 59.7 %; Nucleated Red Blood Cells % 0 %; Platelet Count 273 10^3/cmm (157-399); Red Blood Count 4.71 10^6/uL (3.85-5.65); Red Cell Distribution Width 14.8 % (12.1-15.1); White Blood Count 6.04 10^3/uL (3.29-11.43)
[2024-06-01] MEDS: cefTRIAXone 1,000 mg SDV 1000 MG IVP (05:14)
[2024-06-01] MEDS: apixaban 5 mg Tablet PO ×2 (05:14→17:26)
[2024-06-01 05:24] LABS: Alanine Aminotransferase 14 U/L (0-33); Albumin Level 3.9 g/dL (3.5-5.2); Alkaline Phosphatase 98 U/L (35-105); Anion Gap 15.4 (5-19); Aspartate Amino Transferase 16 U/L (0-32); Blood Urea Nitrogen 25 mg/dL (8-23); Calcium 8.9 mg/dL (8.5-10.5); Carbon Dioxide 21 mmol/L (22-29); Chloride 105 mmol/L (98-107); Creatinine Clr Calc Pharmacy 58.3414; Globulin 2.8 g/dL (1.3-4.6); Glucose 91 mg/dL (65-115); Magnesium 1.9 mg/dL (1.7-2.3); Osmolality Calculated 288 mOsm/kg (285-295); Phosphorus 2.1 mg/dL (2.5-4.5); Potassium 4.4 mmol/L (3.5-5.1); Sodium 137 mmol/L (136-145); Total Bilirubin 0.5 mg/dL (0.15-1.2); Total Protein 6.7 g/dL (6.6-8.7)
[2024-06-01] MEDS: FUROsemide 10 mg/mL SDV 4mL 40 MG IVP (10:21)
[2024-06-01] MEDS: pantoprazole 40 mg SDV IVP (12:32)
--- NOTE | 2024-06-01 13:28 | PHA.VACGOAL ---
Vancomycin Goal - Goal Vancomycin Goal:: 10-15 mg/L Vancomycin Indication:: Other (UTI, PYELONEPHRITIS) - Therapy Current therapy:: Other Antibiotic (CEFTRIAXONE) Day of therpy:: DAY 2 Actual body weight (kg): 200 lb [place] body weight: 45.5 KG Dosing weight (kg): 63.58 - Data Labs: WBC 6.04 10^3/uL (3.29-11.43) 06/01/24 03:59 RBC 4.71 10^6/uL (3.85-5.65) 06/01/24 03:59 Hgb 12.60 g/dL (11.27-16.99) 06/01/24 03:59 Hct 41.5 % (36-47) 06/01/24 03:59 MCV 88.1 fl (85-98) 06/01/24 03:59 MCH 26.8 pg (27-33) L 06/01/24 03:59 MCHC 30.4 g/dL (30-55) 06/01/24 03:59 RDW 14.8 % (12.1-15.1) 06/01/24 03:59 Sodium 137 mmol/L (136-145) 06/01/24 03:59 Potassium 4.4 mmol/L (3.5-5.1) 06/01/24 03:59 Chloride 105 mmol/L (98-107) 06/01/24 03:59 Carbon Dioxide 21 mmol/L (22-29) L 06/01/24 03:59 Anion Gap 15.4 (5-19) 06/01/24 03:59 BUN 25 mg/dL (8-23) H 06/01/24 03:59 Creatinine 0.7 mg/dL (0.5-0.9) 06/01/24 03:59 GFR Calculation Not Reportable 06/01/24 03:59 Last dialysis session:: N/A Treatment plan:: continue Regimen:: 1500 MG Q12H Follow up:: TROUGH SCHEDULED 06/01 @ 1615 PRIOR TO 4TH DOSE
[2024-06-01 17:00] LABS: Vancomycin Trough 19.1 ug/mL (10-15)
--- NOTE | 2024-06-01 17:16 | P.PN_ITS ---
Subjective 2 Subjective: Patient was seen this morning, she does report shortness of breath on exertion, no nausea, no vomiting, no abdominal pain, does report edema Vitals/I&O/Wt Last Vital Signs Temp 98.2 F 06/01/24 12:00 Pulse 101 H 06/01/24 12:00 Resp 26 H 06/01/24 15:12 BP 158/98 06/01/24 12:00 Pulse Ox 95 06/01/24 15:12 O2 Del Method Room Air 06/01/24 12:00 06/01/24 06/01/24 06/01/24 06:59 14:59 22:59 Intake Total 300 / 1360 1080 / 1080 Output Total 1000 / 1000 800 / 1800 Balance 300 / 1260 80 / 80 -800 / -720 Weight last 48 hrs Weight 90.718 kg Weight 86.183 kg Physical Exam 2 Const: COMMON NORMALS: no acute distress and patient oriented x3 Resp: COMMON NORMALS: normal respiratory effort, No retractions, No use of accessory muscles and clear to auscultation bilaterally AUSCULTATION: clear to auscultation bilaterally Cardio: COMMON NORMALS: regular rate, S1 normal heart sound present and S2 normal heart sound present RATE: regular rate RHYTHM: abnormal rhythm H EART SOUNDS: S1 normal heart sound present and S2 normal heart sound present GI: COMMON NORMALS: Normal to inspection, nondistended, normoactive bowel sounds present and non-tender Extremity: OTHER: 1+ edema Neuro: COMMON NORMALS: patient oriented x3 Psych: COMMON NORMALS: mental status grossly normal Data 06/01/24 03:59 06/01/24 03:59 Micro: Microbiology 05/30/24 05:53 Urine Culture - Final Urine,Clean Catch Escherichia coli 05/31/24 07:01 Blood Culture - Preliminary Blood NEGATIVE TO DATE 05/31/24 06:55 Blood Culture - Preliminary Blood NEGATIVE TO DATE A&P Assessment and plan (1) Atrial fibrillation with rapid ventricular response: (2) Chest pain: (3) UTI (urinary tract infection): (4) AMS (altered mental status): (5) EMILIANO (acute kidney injury): (6) Coag negative Staphylococcus bacteremia: Plan A-fib with RVR transition off drip Add Cardizem p.o. 60 mg every 6 hours Eliquis 5 twice daily Chest pain ? Serial EKGs consult troponins, telemetry monitoring -Cardiac echo CONCLUSIONS Frequent ectopy. Normal left ventricular size and function. No regional wall motion disturbances. Ejection fraction about 60%. Rhythm precludes evaluation of diastolic function. Moderately increased left atrial size. Aortic valve is thickened and may be mildly calcified. No aortic insufficiency.mild aortic valve stenosis, mean gradient 8.8 mmHg, EMANUEL 1.3 cm squared. There is a very small hemodynamically insignificant pericardial effusion. There are no prior echocardiogram studies to compare. UTI, pyelonephritis ? Rocephin -Follow urine culture -Follow blood cultures EMILIANO Creatinine renal ultrasound no acute findings Altered mental status, likely related to UTI ? Neurochecks Aspiration precautions CT head Chronic back pain staph bacteremia, likely contamination -repeat blood cultures pending -Continue vancomycin Fluid overload, 1+ pitting edema, IV dose of Lasix 40 mg Eliquis Full code Attestations 2 Medical Necessity Statement*: Patient requires hospitalization for fluid overload requiring IV diuresis, A- fib, UTI, pyelonephritis, Staph species bacteremia Diagnoses Atrial fibrillation with rapid ventricular response I48.91 Chest pain R07.9 UTI (urinary tract infection) N39.0 AMS (altered mental status) R41.82 EMILIANO (acute kidney injury) N17.9 Coag negative Staphylococcus bacteremia R78.81; B95.7
[2024-06-01] MEDS: metoprolol tartrate 25 mg Tablet 12.5 MG PO (17:25)
--- NOTE | 2024-06-01 18:45 | PC.NURSE ---
agriculture research director nurse will walk with patient and note her heart rate and breathing. Monitor for dizziness.
[2024-06-02] VITALS (9 sets, daily range): BP systolic 110–160; BP diastolic 56–103; PULSE 59–113; RESP 18–92; TEMP 36.6–36.7; O2SAT 91–96; BMI 39.0
[2024-06-02] MEDS: oxyCODONE-APAP 10-325 mg Tablet 1 TAB PO ×2 (02:56→09:10)
[2024-06-02 04:27] LABS: Basophils # 0.1 10^3/uL (0.0-0.1); Basophils % 1.1 %; Eosinophils # 0.4 10^3/uL (0.0-0.8); Eosinophils % 6.2 %; Hematocrit 36.5 % (36-47); Lymphocytes # 1.3 10^3/uL (0.8-4.8); Lymphocytes % 23.6 %; Mean Corpuscular HGB Conc 31.5 g/dL (30-55); Mean Corpuscular Hemoglobin 27.5 pg (27-33); Mean Corpuscular Volume 87.3 fl (85-98); Mean Platelet Volume 10.5 fL (7.4-10.4); Monocytes # 0.8 10^3/uL (0.2-0.9); Monocytes % 13.9 %; Neutrophils # 3.11 10^3/uL (1.8-7.7); Neutrophils % 54.8 %; Nucleated Red Blood Cells % 0 %; Platelet Count 262 10^3/cmm (157-399); Red Blood Count 4.18 10^6/uL (3.85-5.65); Red Cell Distribution Width 14.9 % (12.1-15.1); White Blood Count 5.67 10^3/uL (3.29-11.43)
[2024-06-02 04:45] LABS: Anion Gap 15.2 (5-19); Blood Urea Nitrogen 29 mg/dL (8-23); Calcium 8.7 mg/dL (8.5-10.5); Carbon Dioxide 22 mmol/L (22-29); Chloride 108 mmol/L (98-107); Creatinine Clr Calc Pharmacy 60.0546; Glucose 105 mg/dL (65-115); Osmolality Calculated 298 mOsm/kg (285-295); Potassium 4.2 mmol/L (3.5-5.1); Sodium 141 mmol/L (136-145)
[2024-06-02] MEDS: cefTRIAXone 1,000 mg SDV 1000 MG IVP (05:36)
[2024-06-02] MEDS: apixaban 5 mg Tablet PO (05:36)
[2024-06-02] MEDS: vancomycin 1,500 MG/300 ML PIGGYBACK 200 MG IV (05:36)
[2024-06-02] MEDS: metoprolol tartrate 25 mg Tablet 12.5 MG PO (09:08)
[2024-06-02] MEDS: dilTIAZem 60 mg Tablet PO ×2 (09:08→14:16)
--- NOTE | 2024-06-02 11:18 | P.DS_ITS ---
Discharge Providers Date of Admission: 05/30/24 07:58 Date of Discharge: June 02, 2024 Attending Provider at Admission: Mike Nix MD Attending Provider at Discharge: Mike Nix MD Primary Care Provider: Jalil Gibbons DO Diagnoses at Discharge Discharge Diagnosis (1) Atrial fibrillation with rapid ventricular response: Status: Acute (2) Chest pain: Status: Acute (3) UTI (urinary tract infection): Status: Acute (4) AMS (altered mental status): Status: Acute (5) EMILIANO (acute kidney injury): Status: Acute (6) Coag negative Staphylococcus bacteremia: Status: Acute Reason for Visit Reason for Visit: cp,afib,nausea Hospital Course Hospital Course devante Almeida is a 78 year old female with a past medical history of CAD status post stenting, history of atrial fibrillation, hypertension, history of [place] spotted fever, who presents to [facility] due to chest pain and palpitations. Patient was in the last night, [place], she started experiencing chest palpitations and chest pain, she wandered outside her trailer, trying to call family members, but was not able to reach some, she tried to get into her car, and call out for help, she was worried about something happening in her trailer and no one can get to her, so she was trying to call for help in her car, but no one was answering the phones, so she started flashing her lights, yelling for help, finally the police came, and able to calm her down, she was continued to complain of chest discomfort, with the public safety police confronted her that this was not her car it was a truck, that she was and is actually a neighbor's truck, eventually ambulance arrived, and she was brought to [facility] for evaluation, currently she is alert oriented x 4, following all commands, denies any focal weakness no slurring of words no, paresthesias, no nausea, no vomiting, no abdominal pain, she does complain of flank pain, she has a history of atrial for patient, but has not been using Eliquis This is a 78-year-old female, who presents [facility] for A-fib with RVR, managed initially on a Cardizem drip, transition to p.o. Cardizem, discharged on Cardizem to 40 mg once daily. In addition she needed to metoprolol 12.5 mg twice daily, discharged on home Eliquis, follow-up with cardiology as outpatient. Patient's hospitalization was complicated with UTI, pyelonephritis, urine culture showing E. coli, discharged on cefdinir Patient's hospitalization was complicated with staphylococcal species coagulase- negative positive blood cultures, seen in 1 out of 3 blood cultures, repeat blood cultures so far negative, likely contamination, has no other complaints, she does have hardware in her left hip, denies any hip pain. Remains afebrile, will discharge her with close follow-up with primary care provider as outpatient. Physical Exam Const: COMMON NORMALS: no acute distress and patient oriented x3 Resp: COMMON NORMALS: normal respiratory effort, No retractions, No use of accessory muscles and clear to auscultation bilaterally AUSCULTATION: clear to auscultation bilaterally Cardio: COMMON NORMALS: regular rate, regular rhythm, S1 normal heart sound present and S2 normal heart sound present RATE: regular rate RHYTHM: regular rhythm HEART SOUNDS: S1 normal heart sound present and S2 normal heart sound present GI: COMMON NORMALS: Normal to inspection, nondistended, normoactive bowel sounds present and non-tender Extremity: COMMON NORMALS: no pedal edema Neuro: COMMON NORMALS: patient oriented x3 Psych: COMMON NORMALS: mental status grossly normal Discharge Data Studies Completed and Pending Completed Studies During Hospitalization Category Date Time Status CT head wo con* [id number] Stat Cat Scan 05/30/24 10:12 Completed CXRP [XR chest 1V portable [id number]] Stat Exams 05/30/24 04:52 Completed CV. echo complete* [id number] Stat Ultrasound 05/30/24 09:37 Completed US renal BI* [id number] Stat Ultrasound 05/30/24 09:34 Completed Pending at discharge Category Date Time Status Blood Culture Stat Lab 05/30/24 07:56 Results Blood Culture Stat Lab 05/31/24 07:01 Results Radiology Impressions Chest X-Ray 05/30/24 04:52 IMPRESSION: No acute findings. Renal Ultrasound 05/30/24 09:34 IMPRESSION: No hydronephrosis on either side. Head CT 05/30/24 10:12 IMPRESSION: No large territorial infarct or intracranial bleed. Laboratory Results WBC 5.67 10^3/uL (3.29-11.43) 06/02/24 03:49 RBC 4.18 10^6/uL (3.85-5.65) 06/02/24 03:49 Hgb 11.50 g/dL (11.27-16.99) 06/02/24 03:49 Hct 36.5 % (36-47) 06/02/24 03:49 MCV 87.3 fl (85-98) 06/02/24 03:49 MCH 27.5 pg (27-33) 06/02/24 03:49 MCHC 31.5 g/dL (30-55) 06/02/24 03:49 RDW 14.9 % (12.1-15.1) 06/02/24 03:49 Plt Count 262 10^3/cmm (157-399) 06/02/24 03:49 MPV 10.5 fL (7.4-10.4) H 06/02/24 03:49 Neut % (Auto) 54.8 % 06/02/24 03:49 Lymph % (Auto) 23.6 % 06/02/24 03:49 [place] % (Auto) 13.9 % 06/02/24 03:49 Eos % (Auto) 6.2 % 06/02/24 03:49 Baso % (Auto) 1.1 % 06/02/24 03:49 Neut # (Auto) 3.11 10^3/uL (1.8-7.7) 06/02/24 03:49 Lymph # (Auto) 1.3 10^3/uL (0.8-4.8) 06/02/24 03:49 [place] # (Auto) 0.8 10^3/uL (0.2-0.9) 06/02/24 03:49 Eos # (Auto) 0.4 10^3/uL (0.0-0.8) 06/02/24 03:49 Baso # (Auto) 0.1 10^3/uL (0.0-0.1) 06/02/24 03:49 Nucleated RBC % (auto) 0 % 06/02/24 03:49 Nucleated RBCs # 0.0 /100WBC 06/02/24 03:49 PT 14.20 SECONDS (12.1-14.9) 05/30/24 10:17 INR 1.07 (0.8-1.2) 05/30/24 10:17 Sodium 141 mmol/L (136-145) 06/02/24 03:49 Potassium 4.2 mmol/L (3.5-5.1) 06/02/24 03:49 Chloride 108 mmol/L (98-107) H 06/02/24 03:49 Carbon Dioxide 22 mmol/L (22-29) 06/02/24 03:49 Anion Gap 15.2 (5-19) 06/02/24 03:49 BUN 29 mg/dL (8-23) H 06/02/24 03:49 Creatinine 0.8 mg/dL (0.5-0.9) 06/02/24 03:49 GFR Calculation Not Reportable 06/02/24 03:49 Glucose 105 mg/dL (65-115) 06/02/24 03:49 Estimat Average Glucose 126 05/30/24 04:53 Hemoglobin A1c 6.0 % (4.0-6.0) 05/30/24 04:53 Calculated Osmolality 298 mOsm/kg (285-295) H 06/02/24 03:49 Calcium 8.7 mg/dL (8.5-10.5) 06/02/24 03:49 Phosphorus 2.1 mg/dL (2.5-4.5) L 06/01/24 03:59 Magnesium 1.9 mg/dL (1.7-2.3) 06/01/24 03:59 Total Bilirubin 0.5 mg/dL (0.15-1.2) 06/01/24 03:59 AST 16 U/L (0-32) 06/01/24 03:59 ALT 14 U/L (0-33) 06/01/24 03:59 Alkaline Phosphatase 98 U/L (35-105) 06/01/24 03:59 Troponin T Baseline 35 ng/L (0-10) H 05/30/24 04:53 Troponin T 120 Minute 33.58 ng/L (0-10) H 05/30/24 07:11 Delta Troponin T -1.42 ABS# (0-10) L 05/30/24 07:11 Troponin T Hi Sens 6Hr 31.84 ng/L (0-10) H 05/30/24 12:45 Troponin T Hi Sens 6Hr Delta -3.16 ng/L (0-12) L 05/30/24 12:45 C-Reactive Protein 6.1 mg/L (0.0-4.9) H 05/30/24 07:11 NT-Pro-B Natriuret Pep 1823 pg/mL (0-450) H 05/30/24 07:11 Total Protein 6.7 g/dL (6.6-8.7) 06/01/24 03:59 Albumin 3.9 g/dL (3.5-5.2) 06/01/24 03:59 Globulin 2.8 g/dL (1.3-4.6) 06/01/24 03:59 Triglycerides 126 mg/dL (0-150) 05/30/24 04:53 Cholesterol 194 mg/dL (0-200) 05/30/24 04:53 LDL Cholesterol, Calc 107 mg/dL (50-129) 05/30/24 04:53 HDL Cholesterol 62 mg/dL (60-100) 05/30/24 04:53 LDL/HDL Ratio 1.73 RATIO (0.00-3.22) 05/30/24 04:53 Cholesterol/HDL Ratio 3.13 mg/dL (0.0-4.40) 05/30/24 04:53 Procalcitonin 0.16 ng/mL (0-0.5) 05/30/24 07:11 TSH 1.16 uIU/mL (0.27-4.20) 05/30/24 04:53 Urine Color Yellow (Yellow) 05/30/24 05:53 Urine Appearance Cloudy (CLEAR) A 05/30/24 05:53 Urine pH 5.5 (5-7) 05/30/24 05:53 Ur Specific [place] 1.023 (1.005-1.030) 05/30/24 05:53 Urine Protein 1+ (Negative) A 05/30/24 05:53 Urine Glucose (UA) Negative (Normal) 05/30/24 05:53 Urine Ketones Negative (Negative) 05/30/24 05:53 Urine Blood Trace (Negative) A 05/30/24 05:53 Urine Nitrate Positive (Negative) A 05/30/24 05:53 Urine Bilirubin Negative (Negative) 05/30/24 05:53 Urine Urobilinogen 1.0 mg/dL (Negative) 05/30/24 05:53 Ur Leukocyte Esterase 2+ (Negative) A 05/30/24 05:53 Urine RBC 0-2 /hpf (0-2) 05/30/24 05:53 Urine WBC >100 /hpf (0-5) H 05/30/24 05:53 Ur Squamous Epith Cells 0-5 /hpf (0-5) 05/30/24 05:53 Urine Bacteria Exceeds /hpf (NONE) 05/30/24 05:53 Hyaline Casts 6.61 /lpf 05/30/24 05:53 Vancomycin Trough 19.1 ug/mL (10-15) H 06/01/24 16:30 Urine Opiates Screen Positive ng/mL (Negative) H 05/30/24 11:39 Ur Barbiturates Screen Negative ng/mL (Negative) 05/30/24 11:39 Ur Phencyclidine Scrn Negative ng/mL (Negative) 05/30/24 11:39 Ur Amphetamines Screen Negative ng/mL (Negative) 05/30/24 11:39 U Benzodiazepines Scrn Negative ng/mL (Negative) 05/30/24 11:39 Urine Cocaine Screen Negative ng/mL (Negative) 05/30/24 11:39 U Marijuana (THC) Screen Negative ng/mL (Negative) 05/30/24 11:39 Ethyl Alcohol < 10 mg/dL (0-10) 05/30/24 04:53 Vitals Last Vital Signs Temp 98.0 F 06/02/24 07:55 Pulse 102 H 06/02/24 07:55 Resp 25 H 06/02/24 09:10 BP 158/90 06/02/24 07:55 Pulse Ox 95 06/02/24 09:10 O2 Del Method Room Air 06/02/24 07:55 Discharge Plan Discharge Patient Disposition: Home Condition: Stable Prescriptions: New metoprolol tartrate 25 mg Tablet 12.5 mg PO Q12H 30 Days Qty: 30 0RF diltiazem HCl [Cardizem CD] 240 mg capsule,extended release 24hr 240 mg PO DAILY 30 Days Qty: 60 0RF cefdinir 300 mg capsule 300 mg PO BID 5 Days Qty: 10 0RF Continued tizanidine 4 mg tablet 4 mg PO Q6H PRN (Reason: Muscle Spasm) oxycodone-acetaminophen 10-325 mg tablet 1 - 2 tab PO Q6H PRN (Reason: Pain, Severe) Rx Instructions: MUST LAST 14 DAYS OR LONGER MAX DAILY AMOUNT: 8 TABLETS Eliquis 5 mg tablet 5 mg PO BID Discontinued diltiazem HCl [DILT-XR] 120 mg capsule,ext.rel 24h degradable 120 mg PO DAILY Discharge Orders: Discharge Order (Routine); Ordered 06/02/24 Ordered By: Mike Nix Referrals: Antoine Gibbons [Referring] - 06/09/24 11:20 am Milton Vásquez M.D [Physician] - 4-7 days Discharge Diet: Cardiac Discharge Activity: Resume usual activity Patient Instructions: Opioid Safety Discharge Attestations Time Spent in Discharge Care*: greater than 30 min Quality Metrics Clinical Quality Measures [ No reported AMI, CVA or VTE this stay] Coding Level of Care Code 65713 Total time (in minutes) for Discharge: 45 Diagnoses Atrial fibrillation with rapid ventricular response I48.91 Chest pain R07.9 UTI (urinary tract infection) N39.0 AMS (altered mental status) R41.82 EMILIANO (acute kidney injury) N17.9 Coag negative Staphylococcus bacteremia R78.81; B95.7
[2024-06-02] MEDS: pantoprazole 40 mg SDV IVP (11:19)
--- NOTE | 2024-06-02 12:19 | P.PHAVANC_ITS ---
Vancomycin Goal - Goal Vancomycin Goal:: 10-15 mg/L Vancomycin Indication:: Other (UTI, PYELONEPHRITIS) - Therapy Current therapy:: Other Antibiotic (CEFTRIAXONE) Day of therpy:: Day []of [] . Actual body weight (kg): 90.718 kg [place] body weight: 45.5 Dosing weight (kg): 90.718 - Data Labs: WBC 5.67 10^3/uL (3.29-11.43) 06/02/24 03:49 RBC 4.18 10^6/uL (3.85-5.65) 06/02/24 03:49 Hgb 11.50 g/dL (11.27-16.99) 06/02/24 03:49 Hct 36.5 % (36-47) 06/02/24 03:49 MCV 87.3 fl (85-98) 06/02/24 03:49 MCH 27.5 pg (27-33) 06/02/24 03:49 MCHC 31.5 g/dL (30-55) 06/02/24 03:49 RDW 14.9 % (12.1-15.1) 06/02/24 03:49 Sodium 141 mmol/L (136-145) 06/02/24 03:49 Potassium 4.2 mmol/L (3.5-5.1) 06/02/24 03:49 Chloride 108 mmol/L (98-107) H 06/02/24 03:49 Carbon Dioxide 22 mmol/L (22-29) 06/02/24 03:49 Anion Gap 15.2 (5-19) 06/02/24 03:49 BUN 29 mg/dL (8-23) H 06/02/24 03:49 Creatinine 0.8 mg/dL (0.5-0.9) 06/02/24 03:49 GFR Calculation Not Reportable 06/02/24 03:49 Laboratory Tests 06/01/24 16:30 Vancomycin Trough 19.1 H Last dialysis session:: N/A Drug administration history:: Medications Ceftriaxone Sodium (Ceftriaxone 1,000 Mg Sdv) 1,000 mg IVP Q24H HARJINDER; Protocol Last Admin: 06/02/24 05:36 Dose: 1,000 mg Vancomycin(Vancocin) 1,500 mg in 300 mls @ 200 mls/hr IV Q12H HARJINDER Last Admin: 06/02/24 07:34 Dose: Infused Treatment plan:: continue Regimen:: 1500 MG IV Q 12H Follow up:: SCr daily with AM lab Rationale:: Discharge orders have been entered for patient
--- NOTE | 2024-06-02 14:32 | PC.NURSE ---
discharge instructions given and explained.pt and daughter verb understanding of instructions.discharged via w/c to exit at this time.
[2024-06-03 19:44] LABS: Bacillus cereus group Not Detected (NOT DETECT); Bacillus subtillis group Not Detected (NOT DETECT); Corynebacterium Not Detected (NOT DETECT); Cutibacterium acnes (P.acnes) Detected (NOT DETECT); Enterococcus Not Detected (NOT DETECT); Enterococcus faecalis Not Detected (NOT DETECT); Enterococcus faecium Not Detected (NOT DETECT); Lactobacillus species Not Detected (NOT DETECT); Listeria Not Detected (NOT DETECT); Listeria monocytogenes Not Detected (NOT DETECT); Micrococcus Not Detected (NOT DETECT); Pan Candida Not Detected (NOT DETECT); Pan Gram-Negative Not Detected (NOT DETECT); Staphylococcus epidermidis Not Detected (NOT DETECT); Staphylococcus lugdunensis Not Detected (NOT DETECT); Staphylococcus species Not Detected (NOT DETECT); Streptococcus agalactiae Not Detected (NOT DETECT); Streptococcus anginosus group Not Detected (NOT DETECT); Streptococcus pneumoniae Not Detected (NOT DETECT); Streptococcus pyogenes Not Detected (NOT DETECT); Streptococcus species Not Detected (NOT DETECT)
--- NOTE | 2024-06-07 11:51 | PM.MISC ---
Miscellaneous Note Purpose of Documentation: Spoke to patient daughter, patient's blood cultures have finally been reported, cultures have been slow to report, 1 out of 4 blood cultures positive for Staphylococcus saprophyticus, this could be a UTI/bacteremia, I spoke to patient's daughter, I think this is a contamination, but to err on the side of caution, would recommend treatment, she is already on cefdinir as per the daughter, continue cefdinir. If she has any significant symptomatology fevers chills dysuria she should come back to the emergency room, but should complete cefdinir follow-up with primary care
== END 2024-06-02 14:33 | disposition home or self-care (01) ==
LOC: ER 08:03 → CSU 11:18
PROVIDERS: Emergency Medicine; Internal Medicine; Admitting Provider Family Medicine; Emergency Provider Family Medicine; PCP Family Medicine; Visit Provider Family Medicine
DX: I48.91 Unspecified atrial fibrillation (principal); N39.0 Urinary tract infection, site not specified; R78.81 Bacteremia; B95.7 Other staphylococcus as the cause of diseases classified elsewhere; I25.10 Atherosclerotic heart disease of native coronary artery without angina pectoris; Z95.5 Presence of coronary angioplasty implant and graft; I10 Essential (primary) hypertension; Z87.39 Personal history of other diseases of the musculoskeletal system and connective tissue; N12 Tubulo-interstitial nephritis, not specified as acute or chronic; N17.9 Acute kidney failure, unspecified; G89.29 Other chronic pain; M54.9 Dorsalgia, unspecified
CPT/HCPCS: 36415; 70450; 71045; 76770; 80048; 80053; 80061; 80202; 80306; 80307; 81003; 81015; 83036; 83735; 83880; 84100; 84145; 84443; 84484; 85025; 85610; 86140; 87040; 87077; 87086; 87150; 87186; 87205; 93005; 93306; 94664; 96365; 96366; 96367; 96375; 96376; 99291; A9270; G0378; J0696; J1940; J2270; J2470; J3370; J3490

== ENCOUNTER 2025-10-01 17:28 | Emergency (ER) | payer MEDICARE, SELFPAY ==
[2025-10-01 17:29] VITALS: BP 121/67; PULSE 92; RESP 20; TEMP 37.1; O2SAT 90; BMI 39.0
--- OUTSIDE RECORDS SUMMARY | 2025-10-01 17:32 | XMS_ITS | Encounter Summary ---
Author Organization [facility] Address [address] [place] [address] Care Team Providers Care Supervisor Instrument Maintenance Name Role Phone EmilybrittJalil DO Primary Care Provider [phone] Reason for Referral * Radiology Services (Routine) - Closed Specialty Diagnoses / Procedures Referred By Karin t Referred To Contact Diagnoses Left ureteral stone Procedures XR FLUORO LESS THAN 1 HOUR Asher Santos MD [address] [address] Phone: tel: fax: [facility] Pre-Registration [place] CALL TO MAKE APPOINTMENT ONLY [address] [place] [address] Phone: tel: fax: Referral ID Status Reason Start Date Expiration Date Visits Re quested Visits Authorized [id number] Closed 04/11/2020 05/12/2021 1 1 Encounter Details Date Type Department Care Team (Latest Contact Info) Description 04/11/2020 Ancillary Orders [facility] Radiology OR [address] [place] [address] Asher Santos MD [address] [address] Left ureteral stone Social History Tobacco Use Types Packs/Day Years Used Date Smoking Tobacco: Never Smokeless Tobacco: Never Alcohol Use Standard Drinks/Week Comments No 0 (1 standard drink = 0.6 oz pur e alcohol) Comments No Sex and Gender Information Value Date Recorded Sex Assigned at Not on file Legal Sex Female 3:30 PM CDT Gender Identity Not on file Sexual Orientation Not on file COVID-19 Exposure Response Date Recorded In the last month, have you been in contact with someone who was confirmed or suspected to have Coronavirus / COVID-19? Unable to assess 04/11/2020 6:04 AM CDT documented as of this encounter Plan of Treatment Not on file documented as of this encounter Results * XR FLUORO LESS THAN 1 HOUR (04/10/2020 12:57 PM CDT) Narrative 04/11/2020 6:06 AM CDT Order information only. Exam was auto-finalized. Asher Santos MD DIAGNOSTIC IMAGING ORDERABLE S Final Result documented in this encounter Visit Diagnoses Diagnosis Left ureteral stone Left ureteral stone documented in this encounter Additional Health Concerns Infection Onset Date Last Indicated Resolved Time E coli-ESBL (Extended Spectr um Beta Lactamase) 09/20/2020 09/20/2020 R/O COVID-19 04/13/2021 04/13/2021 04/14/2021 7:23 AM CDT documented as of this encounter Care Teams Supervisor Instrument Maintenance Relationship Specialty Start Date End Date Jalil Gibbons DO [address] [place] [address] PCP - General Family Practice 02/14/21 documented as of this encounter
--- OUTSIDE RECORDS SUMMARY | 2025-10-01 17:32 | XMS_ITS | Encounter Summary ---
Author Organization [facility] Address [address] [place] [address] Care Team Providers Care Banding Machine Operator Name Role Phone EmilyJalil de la torre Primary Care Provider [phone] Encounter Details Date Type Department Care Team (Late st Contact Info) Description 02/14/2020 Ancillary Orders [facility] Ultrasound [address] [place] [phone] Britt Kevin NP [address] [address] Chronic kidney disease, stage 3 (CMS/HCC) Social History Tobacco Use Types Packs/Day Years [...] or suspected to have Coronavirus / COVID-19? No / Unsure 02/01/2020 11:08 AM CDT documented as of this encounter Plan of Treatment Not on file documented as of this encounter Visit Diagnoses Diagnosis Chronic kidney disease, stage 3 (CMS/HCC) documented in this encounter Additional Health Concerns Infection Onset Date Last Indicated Resolved Time E coli-ESBL (Extended Spectr um Beta Lactamase) 09/20/2020 09/20/2020 R/O COVID-19 04/13/2021 04/13/2021 04/14/2021 7:23 AM CDT documented as of this encounter Care Teams Banding Machine Operator Relationship Specialty Start Date End Date Jalil Gibbons DO [address] [place] [address] PCP - General Family Practice 02/14/21 documented as of this encounter
--- OUTSIDE RECORDS SUMMARY | 2025-10-01 17:32 | XMS_ITS | Encounter Summary ---
Author Organization [facility] Address [address] [place] [address] Care Team Providers Care Paste Up Worker Name Role Phone Emilybritt Jalil CHACON Primary Care Provider [phone] Reason for Referral * CT Scan (Urgent) - Closed Specialty Diagnoses / Procedures Referred By Yusufac t Referred To Contact Radiology Diagnoses Recurrent UTI Urge incontinence Procedures CT ABD W + PELVIS W WO CT ABDOMEN PELVIS W CONTRAST Asher Santos MD [address] [place] [address] Phone: tel: fax: [facility] CT [address] [place] [address] Phone: tel: fax: Referral ID Status Reason Start Date Expiration Date V isits Requested Visits Authorized [id number] Closed F MC TO SCHEDULE (SGF) 03/14/2020 04/14/2021 1 1 Encounter Details Date Type Department Care Team (Late st Contact Info) Description 03/21/2020 Ancillary Orders [facility] Urology- [address] Entr[address], [address] [place] [address] Asher Santos MD [address] [place] [address] Recurrent UTI; Urge incontinence Social History Tobacco Use Types Packs/Day Years [...] have Coronavirus / COVID-19? No / Unsure 03/21/2020 1:11 PM CDT documented as of this encounter Plan of Treatment Not on file documented as of this encounter Results * CT ABD W + PELVIS W WO (03/21/2020 3:12 PM CDT) Anatomical Region Laterality Modality Abdomen Computed Tomogra phy 03/21/2020 3:12 PM CDT Impressions 03/21/2020 9:04 PM CDT IMPRESSION: Please see below. Exam: CT ABD W + PELVIS W WO Date/Time of Exam: 03/21/2020 3:12 PM Reason For Exam: See diagnosis. Diagnosis: Recurrent UTI; Urge incontinence. Technique: CT of the pelvis was performed prior to intravenous contrast, and then CT of the abdomen and pelvis was performed following the administration of intravenous contrast. Contrast: IOPAMIDOL 61 % INTRAVENOUS SOLUTION (MULTI-DOSE BULK PACK) Given:125 mL. Comparison: None. Findings: There is beam hardening artifact associated with a right hip arthroplasty which limits detail. Lower Chest: There is no significant basilar pulmonary pathology. The heart is enlarged. Aorta/Vasculature: The aorta is nonaneurysmal. Lymph Nodes: There is no retroperitoneal, abdominal or pelvic lymphadenopathy. Liver: The hepatic parenchyma is mildly heterogeneous and decreased in attenuation which may reflect steatosis. No suspicious hepatic lesions are identified. Gallbladder and Biliary: The gallbladder and biliary tree are within normal limits. Spleen: The spleen is within normal limits. Pancreas: The pancreas is within normal limits. Adrenal Glands: There is a mild degree of nonspecific adrenal thickening without evidence of a discrete mass. Kidneys: There are small renal cysts and subcentimeter low-attenuation renal cortical lesions too small to characterize measuring up to 1.8 cm. There is no obstructive uropathy. Stomach: The stomach is within normal limits. Bowel: The bowel loops are normal in position and caliber. There is colonic diverticulosis. There is a moderate amount of stool. There are no focal inflammatory changes. Appendix: The appendix is not definitively visualized. There are no secondary signs of acute appendicitis. Peritoneum: There is no free air or abnormal free fluid. Urinary Bladder: There is a 0.9 cm calculus within the urinary bladder at the left ureteropelvic junction. Pelvic Reproductive Structures: There is no significant pelvic reproductive structure pathology. Subcutaneous Soft Tissues: There is no significant subcutaneous soft tissue pathology. Bones: There are remote appearing posttraumatic changes involving the pubic symphysis. No acute bony pathology or suspicious osseous lesions are identified. IMPRESSION: Calculus at the left ureteropelvic junction measuring 0.9 cm without associated hydronephrosis. Small renal cysts. Colonic diverticulosis. Additional incidental findings as above. [id number] Narrative Procedure Note David Alcantar, DO - 03/21/2020 IMPRESSION: Please see below. Exam: CT ABD W + PELVIS W WO Date/Time of Exam: 03/21/2020 3:12 PM Reason For Exam: See diagnosis. Diagnosis: Recurrent UTI; Urge incontinence. Technique: CT of the pelvis was performed prior to intravenous contrast, and then CT of the abdomen and pelvis was performed following the administration of intravenous contrast. Contrast: IOPAMIDOL 61 % INTRAVENOUS SOLUTION (MULTI-DOSE BULK PACK) Given:125 mL. Comparison: None. Findings: There is beam hardening artifact associated with a right hip arthroplasty which limits detail. Lower Chest: There is no significant basilar pulmonary pathology. The heart is enlarged. Aorta/Vasculature: The aorta is nonaneurysmal. Lymph Nodes: There is no retroperitoneal, abdominal or pelvic lymphadenopathy. Liver: The hepatic parenchyma is mildly heterogeneous and decreased in attenuation which may reflect steatosis. No suspicious hepatic lesions are identified. Gallbladder and Biliary: The gallbladder and biliary tree are within normal limits. Spleen: The spleen is within normal limits. Pancreas: The pancreas is within normal limits. Adrenal Glands: There is a mild degree of nonspecific adrenal thickening without evidence of a discrete mass. Kidneys: There are small renal cysts and subcentimeter low-attenuation renal cortical lesions too small to characterize measuring up to 1.8 cm. There is no obstructive uropathy. Stomach: The stomach is within normal limits. Bowel: The bowel loops are normal in position and caliber. There is colonic diverticulosis. There is a moderate amount of stool. There are no focal inflammatory changes. Appendix: The appendix is not definitively visualized. There are no secondary signs of acute appendicitis. Peritoneum: There is no free air or abnormal free fluid. Urinary Bladder: There is a 0.9 cm calculus within the urinary bladder at the left ureteropelvic junction. Pelvic Reproductive Structures: There is no significant pelvic reproductive structure pathology. Subcutaneous Soft Tissues: There is no significant subcutaneous soft tissue pathology. Bones: There are remote appearing posttraumatic changes involving the pubic symphysis. No acute bony pathology or suspicious osseous lesions are identified. IMPRESSION: Calculus at the left ureteropelvic junction measuring 0.9 cm without associated hydronephrosis. Small renal cysts. Colonic diverticulosis. Additional incidental findings as above. [id number] ORDERABLES Final Result documented in this encounter Visit Diagnoses Diagnosis Recurrent UTI Urinary tract infection, site not specified Urge incontinence Recurrent UTI Urinary tract infection, site not specified Urge incontinence documented in this encounter Additional Health Concerns Infection Onset Date Last Indicated Resolved Time E coli-ESBL (Extended Spectr um Beta Lactamase) 09/20/2020 09/20/2020 R/O COVID-19 04/13/2021 04/13/2021 04/14/2021 7:23 AM CDT documented as of this encounter Care Teams Paste Up Worker Relationship Specialty Start Date End Date Jalil Gibbons DO [address] [place] [address] [place] [address] PCP - General Family Practice 02/14/21 documented as of this encounter
--- OUTSIDE RECORDS SUMMARY | 2025-10-01 17:32 | XMS_ITS | Continuity of Care Document ---
Author Organization [facility] Dajuan, Meg, [facility] ([facility]) Address [address] [place] [address] Assessment No assessment recorded. Plan of Treatment Reminders Order Date Submit Date Provider Last Modified By Organization Details Last Modified Time Details Appointments None record ed. Lab None record ed. Referral None record ed. Procedures None record ed. Surgeries None record ed. Imaging None record ed. Medication Orders None record ed. Patient TargetsNo targets recorded. Patient Instructions Encounter Date Encounter Id Patient Instructions Last Modified By Organization Details Last Modified Time 07/11/2025 [id number] frequently sleeping during the day. Will change oxy to HS only. [email or web address] Not available 07/11/2025 14:29:55 Reason for Referral None Reported. Problems Name Problem SNOMED Code Status Onset Date Resolution Date Notes Provider Name and Address Organization Details Recorded Time Pain 23110365 Active [address] [facility] 11:35:25 Recurrent falls 643880836 Active [address] [facility] 15:24:26 Chronic atrial fibrillation 553793679 Active [address] [facility] 15:24:26 Chronic pain 78920661 Active [address] [facility] 15:24:27 Acute urinary tract infection 895410827 Active [address] [facility], Meg 5 16:25:54 Problem Notes None recorded. Medical Equipment None Reported. Medications Name Sig Start Date Stop Date Status Note LastModified by Organization Details LastModified Time methocarbamol 500 mg tablet TAKE ONE TABLET BY MOUTH FOUR TIMES DAILY. active Not Available Not Available No t Available prednisone 10 mg tablet TAKE 1 TABLET (10 MG) BY MOUTH DAILY FOR 5 DAYS. active Not Available Not Available No t Available metoprolol tartrate 100 mg tablet TAKE ONE TABLET BY MOUTH TWICE DAILY active Not Available Not Available No t Available tizanidine 4 mg tablet TAKE ONE TABLET BY MOUTH every SIX hours NEEDED FOR spasm active Not Available Not Available No t Available diltiazem CD 240 mg capsule,extende d release 24 hr TAKE 1 CAPSULE BY MOUTH DAILY active Not Available Not Available No t Available ciprofloxacin 500 mg tablet TAKE ONE TABLET BY MOUTH EVERY TWELVE HOURS FOR 7 DAYS active Not Available Not Available No t Available oxycodone-aceta minophen 5 mg-325 mg tablet Take 1 tablet every day by oral route at bedtime for 30 days. 2024 active Not Available Not Available Not Avai lable oxycodone-aceta minophen 10 mg-325 mg tablet Take 1 tablet every 6 hours by oral route as needed for 30 days. 2024 active Not Available Not Available Not Avai lable morphine ER 15 mg tablet,extended release Take 1 tablet every 12 hours by oral route for 30 days. 2024 active Not Available Not Available Not Avai lable digoxin 125 mcg (0.125 mg) tablet TAKE 1/2 TABLET BY MOUTH EVERY MORNING active Not Available Not Available No t Available cefdinir 300 mg capsule TAKE 1 CAPSULE (300 MG) BY MOUTH EVERY 12 HOURS FOR 10 DAYS. active Not Available Not Available No t Available doxycycline hyclate 100 mg tablet TAKE ONE TABLET BY MOUTH TWICE DAILY FOR SEVEN DAYS. active Not Available Not Available No t Available diltiazem ER 120 mg tablet,extended release 24 hr Take by oral route for 3 days. active Not Available Not Available No t Available metoprolol tartrate 25 mg tablet TAKE 1/2 A TABLET BY MOUTH EVERY 12 HOURS FOR 30 DAYS active Not Available Not Available No t Available duloxetine 30 mg capsule,delayed release TAKE ONE CAPSULE BY MOUTH DAILY. active Not Available Not Available No t Available duloxetine 60 mg capsule,delayed release TAKE ONE CAPSULE BY MOUTH DAILY. active Not Available Not Available No t Available Eliquis 5 mg tablet TAKE ONE TABLET BY MOUTH TWICE DAILY. active Not Available Not Available No t Available oxycodone ER 10 mg tablet,crush resistant,exten ded release 12 hr TAKE ONE TABLET BY MOUTH EVERY 12 hours. Max daily AMOUNT 20 MG. active Not Available Not Available No t Available Xtampza ER 18 mg capsule sprinkle Take 1 capsule every 12 hours by oral route for 30 days. 2024 active Not Available Not Available Not Avai lable Vitals Date Recorded Body weight Heart rate Respiratory rate Body temperature Oxygen saturation Systolic And Diastolic Provider Name and Address Organization Details Last Updated DateTime 5 13514.7 4 g 76 /min 18 /min 97.7 [degF] 93 % 122/56 mm[Hg] HEMA [facility]ERS [facility], [facility] 5 14:26:27 Social History None recorded. Functional Status None recorded. Mental Status None recorded. Family History Nothing Reported. Medical History No medical history recorded. Gynecological HistoryNo gynecological history recorded. Obstetrics History GPAL:G 0 P 0 0 0 0 Past Encounters Encounter ID Performer Location Encounter Start Date Encounter Closed Date Diagnosis/Indication Diagnosis SNOMED-CT Code Diagnosis ICD10 Code Diagnosis IMO Codes Diagnosis Note [id number] Yoni Mathias DO [facility]) [address] [place] [address] 06/20/2025 13:10:31 06/22/2025 17:37:32 Chronic atrial fibrillation 941507296 I48.20 601827 Chronic pain 12316007 G8 9.29 490511 Pain 78941723 R52 825765 [id number] Yoni Mathias DO [facility] ([facility]) [address] [place] [address] 07/11/2025 12:28:58 07/13/2025 09:42:42 Chronic atrial fibrillation 755106601 I48.20 985240 Chronic pain 35814406 G8 9.29 887297 Health Concerns Section Related Observation LastModified by Organization Detai ls LastModified Time None Recorded Concern Status LastModified by Organization Details LastModified Time None Recorded Payers Encounter Date Sequence Insurance Name Policy Number Policy Sawyer Covered Member ID Sawyer Member ID Guarantor Name 07/11/2025 1 [place] DVANTAGE - PPO) [id number] Loreto Almeida [id number] Loreto Almeida Notes Date Note Type Note Provider Name and Address Organization Details Recorded Time 5 text/html HypertensionReported by PatientHPIFor severity, patient reportsgrade 1 (130-139/80-89). For duration, patient reportshas noted for years. For alleviating factors, patient reportsmedication.ROS as noted in the HPI no complaints per staff Yoni Mathias, DO [address] [place] [address], [phone] [facility] [place] [facility] 07/11/2025 15:04:23 OBGyn Episode No OBEpisode recorded.
--- OUTSIDE RECORDS SUMMARY | 2025-10-01 17:32 | XMS_ITS | Continuity of Care Document ---
Author Organization [facility] Dajuan, Meg, [facility] ([facility]) Address [address] [place] [address] Assessment No assessment recorded. Plan of Treatment [...] Modified By Organization Details Last Modified Time 09/07/2025 [id number] Pain improved with changing to morphine. doing well, mood good. [email or web address] Not available 09/07/2025 13:01:39 Reason for Referral None Reported. Problems Name Problem SNOMED Code Status Onset Date Resolution Date Notes Provider Name and Address Organization Details Recorded Time Pain 13942683 [facility] 2024 [facility] 11:35:25 Recurrent falls 806827393 Active 2024 [facility] L[facility]ithL.CEdith 15:24:26 Chronic atrial fibrillation 719203492 Active 2024 [facility] LEdithL.CEdith 15:24:26 Chronic pain 56320692 Active 2024 [facility] 15:24:27 Acute urinary tract infection 963627511 Active 2024 [facility] Meg 5 16:25:54 Problem Notes None recorded. [...] Address Organization Details Last Updated DateTime 5 92071.3 6 g 64 /min 16 /min 97.7 [degF] 93 % 129/73 mm[Hg] HEMA MARTITA [facility], [facility] 5 13:00:05 Social History None recorded. Functional Status None recorded. Mental Status None recorded. Family History Nothing Reported. Medical History No medical history recorded. Gynecological HistoryNo gynecological history recorded. Obstetrics History GPAL:G 0 P 0 0 0 0 Past Encounters Encounter ID Performer Location Encounter Start Date Encounter Closed Date Diagnosis/Indication Diagnosis SNOMED-CT Code Diagnosis ICD10 Code Diagnosis IMO Codes Diagnosis Note [id number] Yoni Mathias DO [facility] ([facility]) [address] [place] [phone] 08/22/2025 15:03:04 08/24/2025 08:35:29 Pain 91121720 R52 [id number] Yoni Mathias DO [facility] ([facility]) [address] [place] [phone] 09/07/2025 11:50:33 09/12/2025 13:25:15 Pain 52796978 R52 521411 Chronic at rial fibrillation 942000360 I48.20 383275 Chronic pain 96976915 G8 9.29 185391 Health Concerns Section Related Observation LastModified by Organization Detai ls LastModified Time None Recorded Concern Status LastModified by Organization Details LastModified Time None Recorded Payers Encounter Date Sequence Insurance Name Policy Number Policy Sawyer Covered Member ID Sawyer Member ID Guarantor Name 09/07/2025 1 [place]AGE - PPO) [id number] Loreto Almeida [id number] Loreto Almeida Notes Date Note Type Note Provider Name and Address Organization Details Recorded Time 5 text/html HypertensionReported by PatientHPIFor severity, patient reportsgrade 1 (130-139/80-89). For duration, patient reportshas noted for years. For alleviating factors, patient reportsmedication.ROS as noted in the HPI no complaints per staff Yoni Mathias DO [address] [place] [address], [phone], [facility] [place] [facility] 09/07/2025 14:09:58 OBGyn Episode No OBEpisode recorded.
--- OUTSIDE RECORDS SUMMARY | 2025-10-01 17:32 | XMS_ITS | Encounter Summary ---
Author Organization [facility] Address [address] [place] [address] Care Team Providers Care Speech Language Assistant Name Role Phone EmilyJalil de la torre Primary Care Provider [phone] Encounter Details Date Type Department Care Team (Late st Contact Info) Description 10/19/2015 Ancillary Orders [facility] Admitting [address] [place] [address] Luz Funk, KAM Conrad [address] [place] [address] Injury of left knee, initial encounter (Primary Dx) Social History Tobacco Use Types Packs/Day Years Used Date Smoking Tobacco: Never Assessed Comments Unknown Sex and Gender Information Value Date Recorded Sex Assigned at Not on file Legal Sex Female 3:30 PM CDT Gender Identity Not on file Sexual Orientation Not on file documented as of this encounter Plan of Treatment Not on file documented as of this encounter Results * XR KNEE 3 VW LEFT (10/19/2015 11:32 AM OVERLAY PLASTICIAN) Anatomical Region Laterality Modality Lower Extremity Computed Radiogr aphy 10/19/2015 11:2 2 AM OVERLAY PLASTICIAN Narrative 10/20/2015 1:18 PM OVERLAY PLASTICIAN PROCEDURE XR LEFT KNEE, 3 views, 19 October 2015 DESCRIPTION AP, oblique, and lateral views of the left knee show no acute fracture, dislocation, or deformity. There is some osteophyte of the articular margins medially and laterally. No joint effusion is appreciated in the suprapatellar bursa on the lateral view. IMPRESSION 1. mild osteoarthritis 2. no joint effusion or acute changes seen Procedure Note Lance Erickson MD - 10/20/2015 PROCEDURE XR LEFT KNEE, 3 views, 19 October 2015 DESCRIPTION AP, oblique, and lateral views of the left knee show no acute fracture, dislocation, or deformity. There is some osteophyte of the articular margins medially and laterally. No joint effusion is appreciated in the suprapatellar bursa on the lateral view. IMPRESSION 1. mild osteoarthritis 2. no joint effusion or acute changes seen us Jeffrey Escobar Sr., PREDATOR CONTROL TRAPPER DIAGNOSTIC IMAGIN G ORDERABLES Final Result documented in this encounter Visit Diagnoses Diagnosis Injury of left knee, initial encounter- Primary Injury of left knee, initial encounter documented in this encounter Additional Health Concerns Infection Onset Date Last Indicated Resolved Time E coli-ESBL (Extended Spectr um Beta Lactamase) 09/20/2020 09/20/2020 R/O COVID-19 04/13/2021 04/13/2021 04/14/2021 7:23 AM CDT documented as of this encounter Care Teams Speech Language Assistant Relationship Specialty Start Date End Date Jalil Gibbons DO [address] [address] PCP - General Family Practice 02/14/21 documented as of this encounter
--- OUTSIDE RECORDS SUMMARY | 2025-10-01 17:32 | XMS_ITS | Continuity of Care Document ---
Author Organization [facility] Dajuan, Meg, [facility] ([facility]) Address [address] [place] [address] Assessment No assessment recorded. Plan of Treatment [...] Modified By Organization Details Last Modified Time 08/22/2025 [id number] c/o uncontrolled pain, states oxy works but doesn't last long enough. Will d/c oxy and start xtampza 18 bid. [email or web address] Not available 08/22/2025 17:07:19 Reason for Referral None Reported. Problems Name Problem SNOMED Code Status Onset Date Resolution Date Notes Provider Name and Address Organization Details Recorded Time Pain 33529963 Active 2024 [facility] 11:35:25 Recurrent falls 608701535 Active 2024 [facility] 15:24:26 Chronic atrial fibrillation 087575106 Active 2024 [facility] 15:24:26 Chronic pain 70129408 Active 2024 [facility] 15:24:27 Acute urinary tract infection 396893064 Active 2024 HEMA ANDERS [facility], [facility]. 5 16:25:54 Problem Notes None recorded. Medical [...] Address Organization Details Last Updated DateTime 5 44062.8 8 g 84 /min 18 /min 97.6 [degF] 93 % 138/79 mm[Hg] HEMA ANDERS [facility], [facility] 5 17:05:29 Social History None recorded. Functional Status None recorded. Mental Status None recorded. Family History Nothing Reported. Medical History No medical history recorded. Gynecological HistoryNo gynecological history recorded. Obstetrics History GPAL:G 0 P 0 0 0 0 Past Encounters Encounter ID Performer Location Encounter Start Date Encounter Closed Date Diagnosis/Indication Diagnosis SNOMED-CT Code Diagnosis ICD10 Code Diagnosis IMO Codes Diagnosis Note [id number] Yoni Mathias DO [facility] ([facility]) [address] [place] [phone] 08/22/2025 15:03:04 08/24/2025 08:35:29 Pain 79309196 R52 558006 Health Concerns Section Related Observation LastModified by Organization Detai ls LastModified Time None Recorded Concern Status LastModified by Organization Details LastModified Time None Recorded Payers Encounter Date Sequence Insurance Name Policy Number Policy Sawyer Covered Member ID Sawyer Member ID Guarantor Name 08/22/2025 1 [place] DVANTAGE - PPO) [id number] Loreto Almeida [id number] Loreto Almeida Notes Date Note Type Note Provider Name and Address Organization Details Recorded Time 5 text/html HypertensionReported by PatientHPIFor severity, patient reportsgrade 1 (130-139/80-89). For duration, patient reportshas noted for years. For alleviating factors, patient reportsmedication.ROS as noted in the HPI c/o uncontrolled pain, states oxy works but doesn't last long enough. Yoni Mathias, DO [address] [place] [address], [phone], [facility], Meg 08/23/2025 14:27:53 OBGyn Episode No OBEpisode recorded.
--- OUTSIDE RECORDS SUMMARY | 2025-10-01 17:32 | XMS_ITS | Encounter Summary ---
Author Organization [employer] [facility] Address [address] [place] [address] Care Team Providers Care [employer] Designer Name Role Phone Jalil Gibbons DO Primary Care Provider [phone] Encounter Details Date Type Department Care Team (Latest Contact Info) Description 08/21/2018 Ancillary Orders [facility] [address] [address] Antoine Gibbons MD [address] [place] [address] Visit for screening mammogram Social History Tobacco Use Types Packs/Day Years [...] as of this encounter Visit Diagnoses Diagnosis Visit for screening mammogram Other screening mammogram documented in this encounter Additional Health Concerns Infection Onset Date Last Indicated Resolved Time E coli-ESBL (Extended Spectr um Beta Lactamase) 09/20/2020 09/20/2020 R/O COVID-19 04/13/2021 04/13/2021 04/14/2021 7:23 AM CDT documented as of this encounter Care Teams [employer] Designer Relationship Specialty Start Date End Date Jalil Gibbons DO [address] [place] [address] PCP - General Family Practice 02/14/21 documented as of this encounter
--- OUTSIDE RECORDS SUMMARY | 2025-10-01 17:32 | XMS_ITS | Data Portability ---
Author Organization [facility] Dajuan, Meg, [facility] Address [address] [address] Assessment No assessment recorded. Plan of Treatment [...] Modified By Organization Details Last Modified Time 05/09/2025 [id number] frequently sleeping , will decrease percocet to 5/325 every 8 hours prn to see if contributing. [email or web address] Not available 05/09/2025 16:08:51 06/20/2025 [id number] Will refer to therapy for leg pain. Vitals controlled. Weight up, but eating well. [email or web address] Not available 06/20/2025 14:59:45 07/11/2025 [id number] frequently sleeping during the day. Will change oxy to HS only. [email or web address] Not available 07/11/2025 14:29:55 08/22/2025 [id number] c/o uncontrolled pain, states oxy works but doesn't last long enough. Will d/c oxy and start xtampza 18 bid. [email or web address] Not available 08/22/2025 17:07:19 09/07/2025 [id number] Pain improved with changing to morphine. doing well, mood good. [email or web address] Not available 09/07/2025 13:01:39 Reason for Referral None Reported. Problems Name Problem SNOMED Code Status Onset Date Resolution Date Notes Provider Name and Address Organization Details Recorded Time Pain 11413473 Active 2024 [facility] 11:[facility]25 Recurrent falls 769478019 [facility] 15:24:26 Chronic atrial fibrillation 616743043 [facility] 5 15:24:26 Chronic pain 89598652 [facility] 5 15:24:27 Acute urinary tract infection 798332784 [facility] 5 16:25:54 Problem Notes None recorded. [...] Address Organization Details Last Updated DateTime 5 42448.1 4 g 88 /min 19 /min 97.8 [degF] 93 % 137/86 mm[Hg] [facility] 5 16:05:52 Date Recorded Body weight Heart rate Respiratory rate Body temperature Oxygen saturation Systolic And Diastolic Provider Name and Address Organization Details Last Updated DateTime 5 71577.9 6 g 67 /min 20 /min 98.6 [degF] 95 % 145/73 mm[Hg] [facility] 5 14:57:38 Date Recorded Body weight Heart rate Respiratory rate Body temperature Oxygen saturation Systolic And Diastolic Provider Name and Address Organization Details Last Updated DateTime 5 66947.7 4 g 76 /min 18 /min 97.7 [degF] 93 % 122/56 mm[Hg] [facility] 5 14:26:27 Date Recorded Body weight Heart rate Respiratory rate Body temperature Oxygen saturation Systolic And Diastolic Provider Name and Address Organization Details Last Updated DateTime 5 60499.8 8 g 84 /min 18 /min 97.6 [degF] 93 % 138/79 mm[Hg] [facility] 5 17:05:29 Date Recorded Body weight Heart rate Respiratory rate Body temperature Oxygen saturation Systolic And Diastolic Provider Name and Address Organization Details Last Updated DateTime 5 14520.3 6 g 64 /min 16 /min 97.7 [degF] 93 % 129/73 mm[Hg] [facility] 5 13:00:05 Social History None recorded. Functional Status None recorded. Mental Status None recorded. Family History Nothing Reported. Medical History No medical history recorded. Gynecological HistoryNo gynecological history recorded. Obstetrics History GPAL:G 0 P 0 0 0 0 Past Encounters Encounter ID Performer Location Encounter Start Date Encounter Closed Date Diagnosis/Indication Diagnosis SNOMED-CT Code Diagnosis ICD10 Code Diagnosis IMO Codes Diagnosis Note [id number] Yoni Mathias DO [facility]) [address] [place] [address] 04/07/2025 11:10:56 05/17/2025 07:53:37 [id number] Yoni Mathias DO [facility] ([facility]) [address] [place] [phone] 04/11/2025 14:44:08 04/18/2025 17:56:43 Recurrent falls 648041353 R29.6 24247 Chronic at rial fibrillation 749352146 I48.20 073493 Chronic pain 01142204 G8 9.29 [id number] Yoni Mathias DO [facility]) [address] [place] [address] 04/25/2025 14:25:01 04/27/2025 12:30:40 Acute urinary tract infection 651876265 N39.0 571396 Metabolic encephalopathy 88758270 G93.41 [id number] Yoni DO Mey [facility] ([facility]) [address] [place] [phone] 5 05/09/2025 15:42:57 05/11/2025 09:24:34 Chronic atrial fibrillation 434549121 I48.20 453054 Pain 48674632 R52 [id number] Yoni DO Mey [facility] ([facility]) [address] [place] [address] 5 06/20/2025 13:10:31 06/22/2025 17:37:32 Chronic atrial fibrillation 880221204 I48.20 854872 Chronic pain 06129803 G8 9.29 450188 Pain 42882080 R52 [id number] Yoni Mathias DO [facility] ([facility]) [address] [place] [phone] 5 07/11/2025 12:28:58 07/13/2025 09:42:42 Chronic atrial fibrillation 007431652 I48.20 548057 Chronic pain 60904855 G8 9.29 [id number] Yoni Mey [facility] ([facility]) [address] [place] [address] 08/22/2025 15:03:04 08/24/2025 08:35:29 Pain 74972893 R52 902594 [id number] Yoni Mey [facility] ([facility]) [address] [place] [phone] 09/07/2025 11:50:33 09/12/2025 13:25:15 Pain 02436599 R52 219976 Chronic at rial fibrillation 822898302 I48.20 666669 Chronic pain 12296389 G8 9.29 520219 Health Concerns Section Related Observation LastModified by Organization Detai ls LastModified Time None Recorded Concern Status LastModified by Organization Details LastModified Time None Recorded Advance Directives Directive None Recorded Payers Insurance Date Sequence Insurance Name Policy Number Policy Sawyer Covered Member ID Sawyer Member ID Guarantor Name 04/13/2025 1 [place] Loreto Almeida [id number] Loreto Almeida 04/07/2025 1 *SELF PAY* Nilson Almeida 09/07/2025 1 [place] - PPO) [id number] Loreto Almeida [id number] Loreto Almeida Notes Date Note Type Note Provider Name and Address Organization Details Recorded Time 5 text/html HypertensionReported by PatientHPIFor severity, patient reportsgrade 1 (130-139/80-89). For duration, patient reportshas noted for years. For alleviating factors, patient reportsmedication.ROS as noted in the HPI Staff reports increased fatigue, daytime sleepiness. Yoni Mathias [address], [phone], [facility] 05/09/2025 16:52:04 5 text/html HypertensionReported by PatientHPIFor severity, patient reportsgrade 1 (130-139/80-89). For duration, patient reportshas noted for years. For alleviating factors, patient reportsmedication.ROS as noted in the HPI no complaints per staff, pt reports increased leg pain. Yoni Mathias [address], [phone], [facility] 06/22/2025 13:58:21 5 text/html HypertensionReported by PatientHPIFor severity, patient reportsgrade 1 (130-139/80-89). For duration, patient reportshas noted for years. For alleviating factors, patient reportsmedication.ROS as noted in the HPI no complaints per staff Yoni Mathias [address], [phone], [facility] 07/11/2025 15:04:23 5 text/html HypertensionReported by PatientHPIFor severity, patient reportsgrade 1 (130-139/80-89). For duration, patient reportshas noted for years. For alleviating factors, patient reportsmedication.ROS as noted in the HPI c/o uncontrolled pain, states oxy works but doesn't last long enough. Yoni MathiasDO [address] [place] [address], [phone], [facility] Dajuan, Colette. 08/23/2025 14:27:53 5 text/html HypertensionReported by PatientHPIFor severity, patient reportsgrade 1 (130-139/80-89). For duration, patient reportshas noted for years. For alleviating factors, patient reportsmedication.ROS as noted in the HPI no complaints per staff Yoni MathiasDO [address] [place] [address], [phone], [facility] Dajuan, LZach. 09/07/2025 14:09:58 OBGyn Episode No OBEpisode recorded.
--- OUTSIDE RECORDS SUMMARY | 2025-10-01 17:32 | XMS_ITS | Clinical Summary ---
Author Organization [facility] Address [address] [address] Phone Care Team Providers Care Funeral Greeter Name Role Phone Jalil Gibbons Primary Care Provider [phone] Allergies Active Allergy Reactions Criticality Noted Date Comments Amiodarone Nausea and Vomiting,Other (See Comments) High 09/20/2019 Hair loss and skin turned yellow Amoxicillin-Pot Clavulanate Nausea and Vomiting Low 03/27/2016 Cyclobenzaprine Confusion High 10/18/2020 Nitrofurantoin Monohyd/M-Cryst Nausea and Vomiting Low 04/10/2020 Medications multivitamin (DAILY-MIN) tablet Take 1 Tablet by mouth daily. Active OTHER Take 1 Tablet by mouth daily Vitamin B complex . Active albuterol HFA 90 mcg inhalerIndicatio ns:Mild intermittent asthma without complication,Bro nchitis, asthmatic, mild intermittent, with acute exacerbation Take 2 Puffs by inhalation every 6 hours as needed for Shortness of Breath. 8 Gram 1 9 Active albuterol (PROVENTIL,ADRIEN RICCARDO) 2.5 mg /3 mL (0.083 %) Solution for NebulizationIndi cations:Mild intermittent asthma without complication,Bro nchitis, asthmatic, mild intermittent, with acute exacerbation Take 3 mL (2.5 mg) by inhalation every 4 hours as needed for Shortness of Breath or Wheezing. 300 mL 1 9 Active budesonide-formo terol (SYMBICORT) 80-4.5 mcg/actuation HFA Aerosol InhalerIndicatio ns:Mild intermittent asthma with acute exacerbation Take 2 Puffs by inhalation 2 times daily. 6.9 Gram 3 9 Active halima.stocking ,knee,reg,xlrg (COMP STOCKING, KNEE,REG, X-LRG)Indication s:lower extremity edema Wear compression stockings while awake. 1 Each 3 9 Active nebulizerIndicat ions:Mild intermittent asthma with acute exacerbation Length of need 99 months Nebulizer with compressor, Kit: Disposable Nebulizer Kit, 2 per month, filters , areosol mask: No. Name of Medication: albuterol. 1 Each 0 Active ondansetron (ZOFRAN) 4 mg Tablet TAKE ONE TABLET BY MOUTH EVERY 6 HOURS NEEDED FOR NAUSEA 30 Tablet 3 0 Active LORazepam (ATIVAN) 0.5 mg tabletIndication s:Generalized anxiety disorder TAKE ONE TABLET BY MOUTH EVERY 8 HOURS NEEDED FOR ANXIETY 30 Tablet 0 Active HYDROCHLOROTHIAZ KRYSTA 25 mg tabletIndication s:Chronic diastolic congestive heart failure (CMS/HCC),Bilate ral lower extremity edema TAKE ONE TABLET SHOVEL LOADER OPERATOR AND 1 TABLET EARLY AFTERNOON 60 Tablet 1 Active furosemide (LASIX) 20 mg tablet Take 1-2 Tablets (20-40 mg) by mouth 1 time daily as needed (for fluid swellling). (PHARM - D/C HCTZ FOR NOW) 40 Tablet 1 1 Active apixaban (Eliquis) 5 mg tabletIndication s:Intermittent atrial fibrillation (CMS/HCC) Take 1 Tablet (5 mg) by mouth 2 times daily. 30 Tablet 6 1 Active tiZANidine (ZANAFLEX) 2 mg TabletIndication s:Chronic midline low back pain with bilateral sciatica Take 1 Tablet (2 mg) by mouth every 8 hours as needed for Spasm. 90 Tablet 6 1 Active sulfamethoxazole -trimethoprim (BACTRIM DS) 800-160 mg tabletIndication s:Calculus of ureter Take 1 Tablet by mouth daily. 30 Tablet 6 1 Active benazepriL (LOTENSIN) 20 mg tabletIndication s:Lymphedema of both lower extremities,Esse ntial hypertension Take 1 Tablet (20 mg) by mouth daily. For blood pressure and swelling 90 Tablet 4 1 Active naloxone (NARCAN) 4 mg/spray [place], Non-Aerosol EMERGENCY USE ONLY: Administer 1 spray (4 mg) in one nostril one time. May repeat in alternating nostrils every 2-3 min until responsive or EMS arrives. 2 Each 3 1 Active metoprolol tartrate (LOPRESSOR) 100 mg tabletIndication s:Chronic diastolic congestive heart failure (CMS/HCC) 1 tab twice a day 60 Tablet 3 1 Active HYDROcodone-acet aminophen (NORCO) 10-325 mg TabletIndication s:Chronic midline low back pain with bilateral sciatica TAKE TAKE 1 & 1/2 TO 2 TABLETS UP TO THREE TIMES A DAY NEEDED FOR PAIN MAX OF 7 PER DAY MUST LAST 14 DAYS OR LONGER 98 Tablet 1 Active Active Problems Problem Noted Date Diagnosed Date Calculus of ureter 01/02/2021 Stage 3 chronic kidney disease 01/28/2020 Lymphedema of both lower extremities 11/08/2019 Generalized anxiety disorder 03/12/2019 Major depressive disorder, r ecurrent episode, in partial remission 03/12/2019 Paroxysmal atrial fibrillation 03/12/2019 Chronic anticoagulation - Eliquis 03/12/2019 Morbid obesity with body mass index of 40.0-49.9 09/12/2018 Mild intermittent asthma without complication Rectocele 07/28/2018 Chronic diastolic congestive heart failure 03/24 Chronic midline low back pain with bilateral sci atica 01/21/2017 Spondylolisthesis at L4-L5 level 01/21/2017 DDD (degenerative disc disease), lumbosacral Neuroforaminal stenosis of lumbar spine 01/22/20 17 Lumbar facet arthropathy 01/21/2017 Status post right hip replacement 04/18/2016 Essential hypertension Migraine headache Resolved Problems Problem Noted Date Diagnosed Date Resolved Date Asthma 09/12/2018 09/12/2018 Atrial fibrillation with rap id ventricular response 03/24/2017 07/06/2018 DDD (degenerative disc disease), lumbar 01/21/2017 07/06/2018 Postoperative anemia due to acute blood loss 6 11/20/2020 Primary osteoarthritis of right hip 04/09/2016 07/06/2018 Preoperative general physical examination 04/09/2016 07/06/2018 Class 3 obesity due to exces s calories with serious comorbidity and body mass index (BMI) of 45.0 to 49.9 in adult 04/09/2016 09/12/2018 Hypercalcemia 04/09/2016 11/20/2020 Acute cystitis with hematuria 04/09/2016 11/20/2020 Immunizations Immunization Administration Dates Next Due (PREVNAR 13)(6 WKS UP) PNEUM OCOCCAL CONJUGATE (PCV13) 0.5 ML, IM 09/20/2019 INFLUENZA VACCINE QUADRIVALENT 3 YR UP PF IM 10/2018 INFLUENZA VACCINE QUADRIVALENT 6 MOS UP PF IM Pneumococcal Polysaccharide Vacc 23-lima IM SCHIP 04/26/2015 Family History Medical History Relation Name Comments Unknown Brother Leighton 1/2 Healthy Daughter 1 Vivian Other Daughter 2 Cyndee bad acid reflu x Healthy Daughter 3 Roxanna Other Father problems from being in the war Healthy Mother Cancer Sister Cynthia 1/2 Healthy Son 1 Nick Healthy Son 2 Jeffrey Healthy Son 3 Floyd Relation Name Status Comments Brother Leighton 1/2 (Age 70's) Daughter 1 Vivian Alive Daughter 2 Cyndee Alive Daughter 3 Roxanna Alive Father (Age 77) Mother (Age 85) Sister Cynthia 1/2 (Age 72) Son 1 Nick Alive Son 2 Jeffrye Alive Son 3 Floyd Alive Social History Tobacco Use Types Packs/Day Years Used Date Smoking Tobacco: Never Smokeless Tobacco: Never Tobacco Cessation:Counseling Given: No Alcohol Use Standard Drinks/Week Comments No 0 (1 standard drink = 0.6 oz pur e alcohol) Comments No Sex and Gender Information Value Date Recorded Sex Assigned at Not on file Legal Sex Female 3:30 PM CDT Gender Identity Not on file Sexual Orientation Not on file Last Filed Vital Signs Vital Sign Reading Time Taken Comments Blood Pressure 122/78 04/04/2021 10:26 AM CDT Pulse 122 04/04/2021 10:26 AM CDT Temperature 36.1 C (96.9 F) 04/04/2021 10:26 AM CDT Respiratory Rate 22 04/04/2021 10:26 AM CDT Oxygen Saturation 91% 04/04/2021 10:26 AM CDT Inhaled Oxygen Concentration - - Weight 108.9 kg (240 lb) 04/04/2021 10:26 AM CDT Height 152.4 cm (5') 04/04/2021 10:26 AM CDT Body Mass Index 46.87 04/04/2021 10:26 AM CDT Plan of Treatment Health Maintenance Due Date Last Done Comments DIABETES ANNUAL FOOT EXAM 1965 DIABETES ANNUAL RETINAL EXAM 1965 DIABETES MICROALBUMIN ANNUAL SCREEN 1965 DTAP/TDAP/TD VACCINES (1 - Tdap) 1966 ZOSTER VACCINE (1 of 2) 1997 OSTEOPOROSIS SCREENING 2012 DIABETES HBA1C Q 6 MONTHS 05/10/2020 11/10/2019 LDL CHOLESTEROL ANNUAL 11/27/2021 11/27/2020, 2019 RSV VACCINE (60+ or ) (1 - 1-dose 75+ series) 2022 Medicare Advantage ([place]) Prev entative Visit/Annual Wellness Visit 10/27/2024 09/28/2024, 12/25/2018 INFLUENZA VACCINE (#1) 2025 09/20/2019, 2018 PNEUMOCOCCAL VACCINE 50+ YEARS Completed 09/20/2019 , 04/26/2015 Medical Devices Implanted Type Area Grease And Tallow Pumper Device Identifier Shelf Expiration Date Model / Serial / Lot Stem Fem Tprlc R/D [id number] - [id number] Implanted:Qty: 1 on 04/18/2016 by Asher Cleveland MD at [facility] Hip Right: Hip [employer] 08/17/2025 [id number] / / [id number] Head Fem Biolox Option 28mm [id number] - [id number] Implanted:Qty: 1 on 04/18/2016 by Asher Cleveland MD at [facility] Hip Right: Hip [employer] [id number] 07/14/2025 [id number] / / [id number] Slv Biolox Delta Optn Type 1 650-1066 - [id number] Implanted:Qty: 1 on 04/18/2016 by Asher Cleveland MD at [facility] Hip Right: Hip [employer] [id number] 02/08/2026 [id number] / / [id number] Stent Contour [id number] - [id number] Implanted:03/27 by Asher Santos MD at [facility] (Quantity not on file) Stent Left: Ureter [employer] UROLOGY/COST ESTIMATING ENGINEER [id number] 10/11/2022 [id number] / / [id number] Acetabular Shell 3-Hole #[id number] Implanted:Qty: 1 on 04/18/2016 by Asher Cleveland MD at [facility] Right: Hip [employer] [id number] 02/16/2026 [id number] / / [id number] Description:wilbert#[id number] pr icing / rec'vd vendor invoice Acetabular Screw [id number] Implanted:Qty: 1 on 04/18/2016 by Asher Cleveland MD at [facility] Right: Hip [employer] [id number] 06/15/2025 [id number] / / [id number] Description:wilbert#[id number] pr icing / rec'vd vendor invoice Acetabular Liner [id number] Implanted:Qty: 1 on 04/18/2016 by Asher Cleveland MD at [facility] Right: Hip [employer] [id number] 12/24/2025 [id number] / / [id number] Description:wilbert#[id number] pr icing / vendor invoice Dual Mobility Bearing Implanted:Qty: 1 on 04/18/2016 by Asher Cleveland MD at [facility] Right: Hip [employer] [id number] 11/24/2020 [id number] / / [id number] Procedures Procedure Name Priority Date/Time Associated Diagnosis Comments LIPID PANEL Routine 11/27/2020 11:00 AM CIRCULAR KNIFE MACHINE CUTTER Essential hypertension HEMOGLOBIN A1C Routine 11/10/2019 1:11 PM CIRCULAR KNIFE MACHINE CUTTER Elevated glucose from Last 3 Months or Most Recently Relevant to Health Maintenance Results * (ABNORMAL) LIPID PANEL (11/27/2020 11:00 AM CIRCULAR KNIFE MACHINE CUTTER) Pathologist [facility] CHOLESTEROL 192 <200 mg/dL 11/27/2020 9:23 PM CIRCULAR KNIFE MACHINE CUTTER [facility] TRIGLYCERIDE 112 <150 mg/dL 11/27/2020 9:23 PM [facility] HDL 62(H) 40 - 59 mg/dL 11/27/2020 9:23 PM [facility] LDL CALCULATED 108(H) <100 mg/dL 11/27/2020 9:23 PM [facility] NON-HDL CHOLESTEROL 130(H) <130 mg/dL 11/27/2020 9:23 PM [facility] Blood Venipuncture / Unknown 11/27/2020 11:00 AM CIRCULAR KNIFE MACHINE CUTTER 11/27/2020 8:33 PM [facility] - 11/27/2020 9:23 PM CIRCULAR KNIFE MACHINE CUTTER TOTAL CHOLESTEROL mg/dL Desirable <200 Borderline high 200-239 High >=240 TRIGLYCERIDES mg/dL Normal <150 Borderline high 150-199 High 200-499 Very high >=500 HDL CHOLESTEROL mg/dL Low <40 Normal 40-59 Desirable >=60 NON HDL CHOLESTEROL mg/dL Optimal <130 Near Optimal 130-159 Borderline High 160-189 Very High >=190 CALCULATED LDL mg/dL LDL <70, OPTIMAL if have Atherosclerotic cardiovascular disease (ASCVD) or intermediate or higher (>7.5%) 10 year risk of ASCVD including most adults with diabetes. LDL <100, Optimal in adult patients with low (<7.5%) 10 year ASCVD risk LDL 100-160, Suboptimal LDL >160, High LDL >190, Very high ATPIII Guidelines Reference Ranges for Lipid Panels (NCEP/AMA) . us Sherine Mcelroy DO CHEMISTRY ORDERABLES Final Result [facility] CLIA# [id number] [facility] [place] [address] * (ABNORMAL) HEMOGLOBIN A1C (11/10/2019 1:11 PM CIRCULAR KNIFE MACHINE CUTTER) HEMOGLOBIN A1C 6.6(H) See Comment % 11/10/2019 9:55 PM [facility] EST. AVG GLUCOSE, A1C 143 mg/dL 11/10/2019 9:55 PM [facility] Blood Venipuncture / Unknown 11/10/2019 1:11 PM CIRCULAR KNIFE MACHINE CUTTER 11/10/2019 8:17 PM CIRCULAR KNIFE MACHINE CUTTER Narrative [facility] - 11/10/2019 9:55 PM CIRCULAR KNIFE MACHINE CUTTER HGB A1C INTERPRETATION NORMAL: <5.7% PRE-DIABETES: 5.7 - 6.4% DIABETES: 6.5% OR GREATER Falsely low A1C measurements can occur when: 1. Anemia and/or hemolytic anemia is present. 2. Hemoglobin variants present. 3. Renal failure. 4. Transfusion of blood product in the last 120 days. We recommend ordering a fructosamine test(PTF0787) to more accurately assess glycemic status if any of the above conditions are present. us Antoine Gibbons MD CHEMISTRY ORDERABLES Final Resu lt [facility] CLIA# [id number] [place] [address] from Last 3 Months or Most Recently Relevant to Health Maintenance Additional Health Concerns Infection Onset Date Last Indicated E coli-ESBL (Extended Spectrum Beta Lactamase) 1 11/20/2019 09/20/2020 Insurance [facility] PPO D-SNP Member Subscriber Plan / Payer (Ef fective 2017-Present) Name:Loreto Almeida Relation to Subscriber:Self Name:Loreto Almeida Payer ID:Not on file Group ID:[id number] Type:RX Medicare Part D Address: [address] Advance Directives For more information, please contact: [phone] * Full Code (Latest Code Status on File) Date Activated Date Inactivated Comments 04/18/2016 12:31 PM 04/20/2016 4:54 PM * Full Code Date Activated Date Inactivated Comments 04/18/2016 6:02 AM 04/18/2016 12:31 PM Care Teams Funeral Greeter Relationship Specialty Start Date End Date Jalil Gibbons DO [address] [place] [address] PCP - General Family Practice 02/14/21
--- NOTE | 2025-10-01 17:48 | CTR_ITS ---
PROCEDURE INFORMATION: Exam: CT Maxillofacial Without Contrast Exam date and time: 10/01/2025 5:55 PM Age: 80 years old Clinical indication: Injury or trauma; Fall; Blunt trauma (contusions or hematomas); Cheek bone and maxilla; Right; Additional info: Fall, contusion TECHNIQUE: Imaging protocol: Computed tomography of the face without contrast. Radiation optimization: All CT scans at this facility use at least one of these dose optimization techniques: automated exposure control; mA and/or kV adjustment per patient size (includes targeted exams where dose is matched to clinical indication); or iterative reconstruction. COMPARISON: CT head wo con* [id number] 05/30/2024 10:31 AM RADIATION DOSE METRICS: Total DLP (mGy-cm): 523.7 FINDINGS: Paranasal sinuses: No air-fluid levels. Orbital cavities: Orbits are normal. Globes are unremarkable. Teeth: Edentulous patient. Bones: No facial fractures. Soft tissues: Right cheek swelling and small subcutaneous hematoma about 5-6 mm in thickness and 15 mm AP. Craniocaudal length about [address]/CT facial bones wo con* [id number] IMPRESSION: No acute findings.
--- NOTE | 2025-10-01 17:48 | CTR_ITS ---
PROCEDURE INFORMATION: Exam: CT Cervical Spine Without Contrast Exam date and time: 10/01/2025 5:55 PM Age: 80 years old Clinical indication: Injury or trauma; Fall; Blunt trauma; Additional info: Fall, contusion TECHNIQUE: Imaging protocol: Computed tomography of the cervical spine without contrast. Radiation optimization: All CT scans at this facility use at least one of these dose optimization techniques: automated exposure control; mA and/or kV adjustment per patient size (includes targeted exams where dose is matched to clinical indication); or iterative reconstruction. COMPARISON: CT head wo con* [id number] 05/30/2024 10:31 AM RADIATION DOSE METRICS: Total DLP (mGy-cm): 286.2 FINDINGS: Bones: No acute fracture. Normal alignment. No significant disc bulge or herniation. No severe spinal canal stenosis. No significant neural foraminal narrowing. Lungs: Lung apices are normal. Soft tissues: Unremarkable. CT/CT cervical spin wo con* [id number] IMPRESSION: No acute cervical spine fracture.
--- NOTE | 2025-10-01 17:48 | CTR_ITS ---
PROCEDURE INFORMATION: Exam: CT Head Without Contrast Exam date and time: 10/01/2025 5:55 PM Age: 80 years old Clinical indication: Injury or trauma; Fall; Blunt trauma (contusions or hematomas); Loss of consciousness unknown; Additional info: Fall, contusion TECHNIQUE: Imaging protocol: Computed tomography of the head without contrast. Radiation optimization: All CT scans at this facility use at least one of these dose optimization techniques: automated exposure control; mA and/or kV adjustment per patient size (includes targeted exams where dose is matched to clinical indication); or iterative reconstruction. COMPARISON: CT head wo con* [id number] 05/30/2024 10:31 AM RADIATION DOSE METRICS: Total DLP (mGy-cm): 1191.1 FINDINGS: Brain: No acute intra-axial hemorrhage. No masses. Normal barriga-white matter differentiation. No midline shift or mass effect. Moderate patchy hypodensity in hemispheric white matter bilaterally most likely due to chronic microangiopathy. There is moderate diffuse cerebral atrophy present, consistent with this patient's age. Cerebral ventricles: No ventriculomegaly. Paranasal sinuses: Visualized sinuses are unremarkable. No fluid levels. Mastoid air cells: Visualized mastoid air cells are well aerated. Bones: Unremarkable. No acute fracture. Soft tissues: Unremarkable. CT/CT head wo con* [id number] IMPRESSION: No acute intracranial abnormality.
--- NOTE | 2025-10-01 17:49 | ED_ITS ---
HPI - Fall 2 General: Chief Complaint: Fall Stated Complaint: pain s/p fall Time Seen by Provider: 10/01/25 17:32 History of Present Illness: Patient is a 80-year-old female presents to the ED via EMS after a fall at 10 AM this morning. She is chronically on Eliquis for A-fib. Patient stated she has urinary urgency, this is ongoing, and she did not have her socks on when she had the urgency, went in the bathroom, turned to turn on the light, and lip, hitting her face on toilet, neck, and front of her head. She was dazed, however no LOC. No laceration. Associated symptoms-after fall: Reports chest pain and headache(s); Denies abdominal pain, lightheadedness or neck pain Related Data Home Medications ?Medication ?Instructions ?Recorded ?Confirmed apixaban 5 mg tablet (Eliquis) 5 mg PO BID 05/30/24 oxycodone-acetaminophen 10 mg-325 1 - 2 tab PO Q6H PRN Pain, Severe 05/30/24 05/30/24 mg tablet tizanidine 4 mg tablet 4 mg PO Q6H PRN Muscle Spasm 05/30/24 05/30/24 Allergies Allergy/AdvReac Type Severity Reaction Status Date / Time amiodarone Allergy ADR-Nausea Verified 05/30/24 15:39 cyclobenzaprine Allergy Unknown Verified 05/30/24 15:39 nitrofurantoin Allergy Unknown Verified 05/30/24 15:39 Penicillins Allergy Unknown Verified 05/30/24 15:39 Tetracyclines Allergy Unknown Verified 05/30/24 15:39 Review of Systems 2 General: Reports: 10 or more systems reviewed and unremarkable except in HPI and below Const: Denies: fever(s) or chills Eyes: Denies: change in vision or blurry vision ENMT: Denies: throat pain or mouth pain Card: Reports: chest pain; Denies: palpitations, irregular heart rhythm or lightheadedness Resp: Denies: dyspnea or non-productive cough GI: Denies: abdominal pain, nausea or vomiting : Denies: flank pain or difficulty voiding Musc: Reports: back pain; Denies: neck pain, extremity pain, extremity swelling or joint pain Neuro: Reports: headache(s); Denies: numbness in extremities, weakness in extremities, sensory changes or lack of coordination Psych: Denies: anxiety or depression PFSH ED 2 PFSH: Medical History (Updated 10/01/25 @ 20:31 by HILDA Venegas) History of back pain HTN, goal below 130/80 Chest pain Atrial fibrillation with rapid ventricular response Surgical History (Updated 05/30/24 @ 11:12 by Mike Nix MD) History of Social History (Updated 05/30/24 @ 11:13 by Mike Nix MD) Smoking and tobacco/nicotine status: never used tobacco/nicotine Alcohol intake: never Substance/Drug Use: never Physical Exam 2 Const: COMMON NORMALS: no acute distress and patient oriented x3 HENMT: COMMON NORMALS: normocephalic HEAD & SCALP: normocephalic FACE & SINUS IMAGES: 1. Blue ecchymosis 2. Blue ecchymosis MOUTH: Normal oral and palatal mucosa present and tongue normal; lip not normal OTHER: No dental injury, no oral or pharyngeal abnormalities Neck/C-Spine: COMMON NORMALS: full ROM, no lymphadenopathy, supple and no meningeal signs Chest: COMMONS NORMALS: normal inspection of the chest and normal palpation of entire chest wall Resp: COMMON NORMALS: normal respiratory effort Cardio: RATE: tachycardic RHYTHM: abnormal rhythm irregularly irregular GI: COMMON NORMALS: Normal to inspection, nondistended, normoactive bowel sounds present : COMMON NORMALS: Yes no CVA tenderness BLADDER/KIDNEY EXAM: Yes no CVA tenderness Back/Pelvis: COMMON NORMALS: no CVA tenderness Extremity: COMMON NORMALS: normal to inspection, full ROM and capillary refill normal Neuro: COMMON NORMALS: patient oriented x3, CN's II-XII intact bilaterally and moves all extremities MENINGEAL SIGNS: Yes no meningeal signs Psych: COMMON NORMALS: mental status grossly normal, Normal thought process present and cooperative THOUGHT PROCESS: Normal thought process present Skin: COMMON NORMALS: no rashes or lesions noted, no wounds and turgor normal GENERAL SKIN EXAM: no rashes or lesions noted and turgor normal Course 2 Vital Signs: Vital signs: Vital Signs Temperature 98.8 F 10/01/25 17:29 Pulse Rate 81 10/01/25 21:14 Respiratory Rate 16 10/01/25 21:14 Blood Pressure 129/81 10/01/25 21:14 Pulse Oximetry 94 10/01/25 21:14 Oxygen Delivery Me thod Room Air 10/01/25 17:29 MDM - Fall Medical Decision Making Patient is a 80-year-old female with ambulatory dysfunction, that slipped, while trying to go urinate on her own. She did not have socks on. CT of the head, neck, and face are without any acute fractures. She does have ecchymosis to her face, which I am sure hurts. I have advised ice, and Tylenol. Patient states understanding. No abnormalities other than squamous epithelials on urine analysis, otherwise benign on UA. Lab Data Radiology Impressions Cervical Spine CT 10/01/25 17:48 IMPRESSION: No acute cervical spine fracture. Face CT 10/01/25 17:48 IMPRESSION: No acute findings. Head CT 10/01/25 17:48 IMPRESSION: No acute intracranial abnormality. All radiology interpretation(s) finalized by discharge Discharge Plan Discharge Patient Disposition: Home Clinical Impression: Contusion of face Qualifiers: Encounter type: initial encounter Qualified Code(s): S00.83XA - Contusion of other part of head, initial encounter Condition: Stable Prescriptions: No Action tizanidine 4 mg tablet 4 mg PO Q6H PRN (Reason: Muscle Spasm) oxycodone-acetaminophen 10-325 mg tablet 1 - 2 tab PO Q6H PRN (Reason: Pain, Severe) Rx Instructions: MUST LAST 14 DAYS OR LONGER MAX DAILY AMOUNT: 8 TABLETS Eliquis 5 mg tablet 5 mg PO BID Discharge Orders: Discharge ED (Routine); Ordered 10/01/25 Ordered By: Gia Brower Referrals: Jalil Gibbons DO [Primary Care Provider] Discharge Diet: Usual diet Discharge Activity: Resume usual activity and Use walker/crutches as instructed Patient Instructions: Contusion, Patient Portal & Sanjeev Instructions Activity Restrictions/Additional Instructions: - Apply ice to your face for comfort - Tylenol for pain - Return to ED with worsening pain, fever greater than 100.4 ?F Thank you for choosing [facility] for your healthcare needs today. You have been screened and evaluated and felt safe for discharge. Health conditions do change or evolve sometimes and as such it is important that you follow up with your Primary Doctor to be re checked, 3-5 days is a general good time frame for follow up. You are always welcome to return to the ED for re assessment if your symptoms are worsening or you have new concerns Print Language: Bengali Coding Level of Care Code ED Hogshead Packer for Peg Marin
[2025-10-01 19:35] VITALS: BP 145/65; PULSE 78; RESP 16; O2SAT 93
[2025-10-01 21:00] VITALS: BP 129/81; PULSE 97; RESP 16; O2SAT 93
[2025-10-01 21:14] VITALS: BP 129/81; PULSE 81; RESP 16; O2SAT 94
== END 2025-10-01 21:18 | disposition home or self-care (01) ==
PROVIDERS: Emergency Provider Physician Assistant; PCP Family Medicine
DX: S00.83XA Contusion of other part of head, initial encounter (principal); Z79.01 Long term (current) use of anticoagulants; I10 Essential (primary) hypertension; W01.198A Fall on same level from slipping, tripping and stumbling with subsequent striking against other object, initial encounter
CPT/HCPCS: 70450; 70486; 72125; 99284